=== PATIENT | female | born 1980 | race Caucasian/White ===

== ENCOUNTER 2018-10-06 19:39 | Emergency (ER) | payer SELFPAY ==
--- OUTSIDE RECORDS SUMMARY | 2018-10-06 19:41 | XMS REPORT | Clinical Summary ---
:1980 Author Organization [facility] Address [address] [place] [address] Care Team Providers Name Role Phone Unavailable Primary Care Provider Unavailable Allergies Active Allergy Reactions Severity Noted Date Comments Levofloxacin 02/01/2017 Medications No known medications Active Problems Not on file Social History Tobacco Use Types Packs/Day Years Used Date Current Every Day Smoker 1 Sex Assigned at Date Recorded Not on file Job Start Date Occupation Industry Not on file Not on file Not on file Travel History Travel Start Travel End No recent travel history available. Last Filed Vital Signs Not on file Plan of Treatment Not on file Results Not on fileafter 10/05/2017
--- OUTSIDE RECORDS SUMMARY | 2018-10-06 19:41 | XMS REPORT | Clinical Summary ---
:1980 Author Organization [facility] Address [address] [place] [address] Care Team Providers Name Role Phone Asked, No Pcp Primary Care Provider Unavailable Allergies Active Allergy Reactions Severity Noted Date Comments Levofloxacin 07/22/2017 Medications No known medications Active Problems Not on file Social History Tobacco Use Types Packs/Day Years Used Date Current Every Day Smoker Cigarettes 1 Alcohol Use Drinks/Week oz/Week Comments No Sex Assigned at Date Recorded Not on file Job Start Date Occupation Industry Not on file Not on file Not on file Travel History Travel Start Travel End No recent travel history available. Last Filed Vital Signs Not on file Plan of Treatment Health Maintenance Due Date Last Done Comments CERVICAL CANCER SCREENING 1999 INFLUENZA VACCINE 04/18/2018 Results Not on fileafter 10/05/2017 Insurance Payer Benefit Plan / Group Subscriber ID Type Phone Address [facility] xxxxxxxxx HMO PLAN [address] [place] [phone] Advance Directives Patient has advance care planning documents on file. For more information, please contact:[facility] [place] [address]
[2018-10-06 20:44] LABS: Absolute Lymphocytes (CBC) 1.6 K/uL (0.7-4.9); Absolute Monocytes 0.5 K/uL (0.1-1.3); Absolute Neutrophil 7.3 K/uL (1.8-8.0); Basophils % 0.8 % (0-1.3); Eosinophils % 1.3 % (0-4.4); Hematocrit 39.4 % (36.0-45.0); Lymphocytes % 16.5 % (15.3-44.8); MPV 8.5 fL (7.6-11.3); Monocytes % 5.6 % (3.3-12.3); RBC Red Blood Cell Count 4.41 M/uL (3.86-4.86)
[2018-10-06] MEDS ORDERED: CLINDAMYCIN 900MG/D5W 900 MG/50 ML IVPB IV ONE (20:52)
[2018-10-06 21:03] LABS: Potassium 3.7 mmol/L (3.5-5.1)
--- NOTE | 2018-10-06 21:09 | RAD REPORT ---
EXAM DESCRIPTION: CT - Soft Tissue Neck W/Contr - 10/06/2018 8:39 pm CLINICAL HISTORY: Neck pain and neck swelling COMPARISON: None. TECHNIQUE: Computed axial tomography of the neck was obtained. 50 cc Isovue-300 administered intrave nously. Coronal and sagittal reconstruction was performed All CT scans are performed using dose optimization technique as appropriate and may include automated exposure control or mA/KV adjustment according to patient size. FINDINGS: Dental caries is present. Diffuse edema is present within the subcutaneous tissues of the right cheek and face without visualization of a fluid-filled abscess. The globes are normal size and density. The periorbital fat is clear. Fluid within the sinuses is not noted. The parotid and submandibular glands are unremarkable. Subcentimeter right thyroid nodule likely is b enign. The pharynx, larynx, tongue base and subglottic trachea appear unremarkable Mild right neck lymph nodes probably are reactive in nature. The soft palate appears elongated which narrows the oropharynx IMPRESSION: Dental caries with a right facial cellulitis The soft palate appears elongated which narrows the oropharynx. This can result in sleep apnea and sh ould be correlated clinically
--- NOTE | 2018-10-06 22:29 | EDPHYS ---
Physician Documentation [facility] Name: Theresa Mcguire Age: 38 yrs Sex: Female : 1980 Arrival Date: 10/06/2018 Time: 19:43 Bed 2 Private MD: None, None ED Physician Urban Vivar HPI: 10/06 20:43 This 38 yrs old Female presents to ER via Ambulatory with complaints of jr8 Facial Swelling. 20:43 Patient recently seen at another facility for facial pain secondary to suspected dental jr8 abscess. Currently on Keflex and Flagyl. Patient stated that now she is having facial swelling . Severity of symptoms: At their worst the symptoms were moderate in the emergency department the symptoms are unchanged. The patient has not experienced similar symptoms in the past. The patient has been recently seen by a physician:. 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 - Social history:: Smoking status: Patient uses tobacco products, smokes one-half pack cigarettes per day. - Ebola Screening: : Patient negative for fever greater than or equal to 101.5 degrees Fahrenheit, and additional compatible Ebola Virus Disease symptoms. ROS: 20:48 Eyes: Negative for injury, pain, redness, and discharge, Neck: Negative for injury, jr8 pain, and swelling, Cardiovascular: Negative for chest pain, palpitations, and edema, Respiratory: Negative for shortness of breath, cough, wheezing, and pleuritic chest pain, Abdomen/GI: Negative for abdominal pain, nausea, vomiting, diarrhea, and constipation, Back: Negative for injury and pain, MS/Extremity: Negative for injury and deformity, Skin: Negative for injury, rash, and discoloration, Neuro: Negative for headache, weakness, numbness, tingling, and seizure. 20:48 ENT: Positive for dental pain, Gum pain Exam: 20:48 Eyes: Pupils equal round and reactive to light, extra-ocular motions intact. Lids and jr8 lashes normal. Conjunctiva and sclera are non-icteric and not injected. Cornea within normal limits. Periorbital areas with no swelling, redness, or edema. Neck: Trachea midline, no thyromegaly or masses palpated, and no cervical lymphadenopathy. Supple, full range of motion without nuchal rigidity, or vertebral point tenderness. No Meningismus. Cardiovascular: Regular rate and rhythm with a normal S1 and S2. No gallops, murmurs, or rubs. Normal PMI, no JVD. No pulse deficits. Respiratory: Lungs have equal breath sounds bilaterally, clear to auscultation and percussion. No rales, rhonchi or wheezes noted. No increased work of breathing, no retractions or nasal flaring. Abdomen/GI: Soft, non-tender, with normal bowel sounds. No distension or tympany. No guarding or rebound. No evidence of tenderness throughout. Back: No spinal tenderness. No costovertebral tenderness. Full range of motion. Skin: Warm, dry with normal turgor. Normal color with no rashes, no lesions, and no evidence of cellulitis. MS/ Extremity: Pulses equal, no cyanosis. Neurovascular intact. Full, normal range of motion. Neuro: Awake and alert, GCS 15, oriented to person, place, time, and situation. Cranial nerves II-XII grossly intact. Motor strength 5/5 in all extremities. Sensory grossly intact. Cerebellar exam normal. Normal gait. 20:48 Head/face: Noted is swelling, that is moderate, of the right cheek, tenderness, that is mild, of the right cheek. 20:48 ENT: Exam is negative for earache, ear discharge, TM abnormalities, nasal discharge, pharyngitis, dysphagia, abnormal voice, Airway patent. Dentition poor with multiple carries present and deteriorating teeth. No obvious fluctuant mass to gum line. Vital Signs: 20:10 BP 133 / 95; Pulse 86; Resp 17 S; Temp 99.1(O); Pulse Ox 100% on R/A; Weight 58.97 kg jd3 (R); Height 5 ft. 7 in. (170.18 cm) (R); 20:57 BP 144 / 91; Pulse 86; Resp 18; Pulse Ox 100% on R/A; tl2 21:55 BP 137 / 94; Pulse 84; Resp 18; Pulse Ox 100% on R/A; tl2 22:57 BP 161 / 104; Pulse 76; Resp 18; Pulse Ox 99% on R/A; tl2 20:10 Body Mass Index 20.36 (58.97 kg, 170.18 cm) jd3 MDM: 20:04 Patient medically screened. jr8 22:27 Data reviewed: vital signs, nurses notes, lab test result(s), radiologic studies, CT jr8 scan, and as a result, I will discharge patient. Data interpreted: Pulse oximetry: on room air is 100 %. Interpretation: normal. Counseling: I had a detailed discussion with the patient and/or guardian regarding: the historical points, exam findings, and any diagnostic results supporting the discharge/admit diagnosis, lab results, radiology results, the need for outpatient follow up, a dentist, to return to the emergency department if symptoms worsen or persist or if there are any questions or concerns that arise at home. ED course: Cellulitis present without abscess. No leukocytosis. Vitals WNL. Will send home with strict return precautions if she were to worsen. Stopping keflex and flagyl and putting on clindamycin . 10/06 20:17 Order name: CBC with Diff; Complete Time: 20:49 8 10/06 20:17 Order name: Basic Metabolic Panel; Complete Time: 21:04 jr8 10/06 20:17 Order name: IV; Complete Time: 20:21 jr8 10/06 20:18 Order name: CT Soft Tissue Neck W/contr; Complete Time: 21:13 jr8 Administered Medications: 20:49 Drug: Clindamycin 900 mg Route: IVPB; Infused Over: 30 mins; Site: right antecubital; tl2 21:18 Follow up: IV Status: Completed infusion tl2 Disposition: 10/07 03:29 Co-signature as Attending Physician, Urban Vivar MD Available for consultation at ps1 all times . Disposition: 10/06/18 22:29 Discharged to Home. Impression: Cellulitis of face. - Condition is Stable. - Discharge Instructions: Cellulitis, Adult. - Prescriptions for Clindamycin HCl 300 mg Oral Capsule - take 1 capsule by ORAL route every 6 hours for 10 days; 40 capsule. Tylenol- Codeine #3 300-30 mg Oral Tablet - take 2 tablets by ORAL route every 6 hours As needed; 12 tablet. - Medication Reconciliation Form, Thank You Letter, Antibiotic Education, Prescription Opioid Use form. - Follow up: Private Physician; When: 2 - 3 days; Reason: Recheck today's complaints, Continuance of care, Re-evaluation by your physician. - Problem is new. - Symptoms have improved. Signatures: Dispatcher [employer] EDMS Cesar Soto PA PA jr8 Marisol Castro RN RN tl2 Ovi Back RN RN jd3 Urban Vivar MD MD ps1 Corrections: (The following items were deleted from the chart) 10/06 23:01 22:29 10/06/2018 22:29 Discharged to Home. Impression: Cellulitis of face. Condition is tl2 Stable. Forms are Medication Reconciliation Form, Thank You Letter, Antibiotic Education, Prescription Opioid Use. Follow up: Private Physician; When: 2 - 3 days; Reason: Recheck today's complaints, Continuance of care, Re-evaluation by your physician. Problem is new. Symptoms have improved. jr8
--- NOTE | 2018-10-06 22:29 | ER ---
Nurse's Notes [facility] Name: Theresa Mcguire Age: 38 yrs Sex: Female : 1980 Arrival Date: 10/06/2018 Time: 19:43 Bed 2 Private MD: None, None Diagnosis: Cellulitis of face Presentation: 10/06 20:07 Presenting complaint: Patient states: "I am having right sided facial swelling. went to [facility] the dentist yesterday and a doctor gave me Flagyl and Keflex.". Transition of care: patient was not received from another setting of care. Onset: The symptoms/episode began/occurred yesterday. Anaphylaxis evaluation, no signs or symptoms of anaphylaxis were noted. Onset of symptoms was October 06, 2018. Risk Assessment: Do you want to hurt yourself or someone else? Patient reports no desire to harm self or others. Initial Sepsis Screen: Does the patient meet any 2 criteria? No. Patient's initial sepsis screen is negative. Does the patient have a suspected source of infection? No. Patient's initial sepsis screen is negative. Care prior to arrival: None. 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 - Social history:: Smoking status: Patient uses tobacco products, smokes one-half pack cigarettes per day. - Ebola Screening: : Patient negative for fever greater than or equal to 101.5 degrees Fahrenheit, and additional compatible Ebola Virus Disease symptoms. Screenin:22 Abuse screen: Denies threats or abuse. Nutritional screening: No deficits noted. tl2 Tuberculosis screening: No symptoms or risk factors identified. Fall Risk None identified. Assessment: 20:22 General: Appears in no apparent distress. uncomfortable, Behavior is calm, cooperative, tl2 appropriate for age. Pain: Complains of pain in right side of face. Neuro: Level of Consciousness is awake, alert, obeys commands, Oriented to person, place, time, situation. Cardiovascular: Denies chest pain. Respiratory: Airway is patent Respiratory effort is even, unlabored, Respiratory pattern is regular, symmetrical, Breath sounds are clear. GI: No signs and/or symptoms were reported involving the gastrointestinal system. : No signs and/or symptoms were reported regarding the genitourinary system. EENT: Poor dentition noted. swelling on right side of face from infected tooth. Derm: Skin is pink, warm \\T\\ dry. 22:57 Reassessment: Patient appears in no apparent distress at this time. Patient and/or tl2 family updated on plan of care and expected duration. Pain level reassessed. Patient is alert, oriented x 3, equal unlabored respirations, skin warm/dry/pink. pt verbalized understanding of discharge instructions, need for follow up and prescription usage. Verbalized understanding to stop flagyl and take clindamycin. Vital Signs: 20:10 BP 133 / 95; Pulse 86; Resp 17 S; Temp 99.1(O); Pulse Ox 100% on R/A; Weight 58.97 kg jd3 (R); Height 5 ft. 7 in. (170.18 cm) (R); 20:57 BP 144 / 91; Pulse 86; Resp 18; Pulse Ox 100% on R/A; tl2 21:55 BP 137 / 94; Pulse 84; Resp 18; Pulse Ox 100% on R/A; tl2 22:57 BP 161 / 104; Pulse 76; Resp 18; Pulse Ox 99% on R/A; tl2 20:10 Body Mass Index 20.36 (58.97 kg, 170.18 cm) jd3 ED Course: 19:43 Patient arrived in ED. mr 19:44 None, None is Private Physician. mr 19:56 Cesar Soto PA is [facility]. jr8 19:56 Urban Vivar MD is Attending Physician. jr8 20:09 Triage completed. jd3 20:11 Arm band placed on. jd3 20:21 Inserted saline lock: 22 gauge in right antecubital area, using aseptic technique. tl2 Blood collected. 20:22 Patient has correct armband on for positive identification. Bed in low position. Call tl2 light in reach. Side rails up X 1. 20:38 CT completed. Patient moved back from CT. bq 20:40 CT Soft Tissue Neck W/contr In Process Unspecified. EDMS 20:41 Marisol Castro, RN is Primary Nurse. tl2 22:57 No provider procedures requiring assistance completed. IV discontinued, intact, tl2 bleeding controlled, No redness/swelling at site. Pressure dressing applied. Administered Medications: 20:49 Drug: Clindamycin 900 mg Route: IVPB; Infused Over: 30 mins; Site: right antecubital; tl2 21:18 Follow up: IV Status: Completed infusion tl2 Outcome: 22:29 Discharge ordered by . joel 22:57 Discharged to home ambulatory. tl2 22:57 Condition: stable 22:57 Discharge instructions given to patient, Instructed on discharge instructions, follow up and referral plans. medication usage, Demonstrated understanding of instructions, follow-up care, medications, Prescriptions given X 2. 23:01 Patient left the ED. tl2 Signatures: Dispatcher [employer] [facility] Naa Calvo mr TimmyDona Josh, PA PA jr8 Marisol Castro RN RN tl2 Ovi Back RN RN jd3 Corrections: (The following items were deleted from the chart) 20:11 20:07 Acuity: MYKEL 4 jd3 jd3
== END 2018-10-06 23:01 | disposition home or self-care (01) ==
LOC: ER 19:39
DX: L03.211 Cellulitis of face (principal); F17.210 Nicotine dependence, cigarettes, uncomplicated; Z88.1 Allergy status to other antibiotic agents; Z72.0 Tobacco use
CPT/HCPCS: 36415; 70491; 80048; 85025; Q9967

== ENCOUNTER 2018-10-09 07:37 | Emergency (ER) | payer SELFPAY ==
--- OUTSIDE RECORDS SUMMARY | 2018-10-09 07:39 | XMS REPORT | Clinical Summary ---
:1980 Author Organization [facility] Address [address] [place] [address] Care Team Providers Name Role Phone Unavailable [...] Not on file Results Not on fileafter 10/08/2017
--- OUTSIDE RECORDS SUMMARY | 2018-10-09 07:39 | XMS REPORT | Clinical Summary ---
:1980 Author Organization [facility] Address [address] [place] [address] Care Team Providers Name Role Phone Asked, [...] INFLUENZA VACCINE 04/18/2018 Results Not on fileafter 10/08/2017 Insurance Payer Benefit Plan / Group Subscriber ID Type Phone Address [facility] xxxxxxxxx HMO PLAN [address] [place] [phone] Advance Directives Patient has advance care planning documents on file. For more information, please contact:[facility] [place] [address]
--- NOTE | 2018-10-09 08:03 | ER ---
Nurse's Notes [facility] Name: Theresa Mcguire Age: 38 yrs Sex: Female : 1980 Arrival Date: 10/09/2018 Time: 07:40 Bed 13 Private MD: None, None Diagnosis: Dental caries;Facial Cellulitis Presentation: 10/09 07:40 Presenting complaint: Patient states: "I have a tooth infection that has gotten worse." ss Pt reports dental pain began 6 days ago. Pt has not seen a dentist yet, but reports this is her third ER visit for the same infection. Transition of care: patient was not received from another setting of care. Onset of symptoms was October 02, 2018. Risk Assessment: Do you want to hurt yourself or someone else? Patient reports no desire to harm self or others. Initial Sepsis Screen: Does the patient meet any 2 criteria? No. Patient's initial sepsis screen is negative. Does the patient have a suspected source of infection? Yes: Other: dental infection. Care prior to arrival: None. 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 - Social history:: Smoking status: Patient uses tobacco products, smokes one-half pack cigarettes per day. - Ebola Screening: : Patient denies exposure to infectious person Patient denies travel to an Ebola-affected area in the 21 days before illness onset. - Family history:: not pertinent. - Hospitalizations: : No recent hospitalization is reported. Screenin:45 Abuse screen: Denies threats or abuse. Nutritional screening: No deficits noted. rb1 Tuberculosis screening: No symptoms or risk factors identified. Fall Risk None identified. Assessment: 07:45 General: Appears uncomfortable, Behavior is calm, cooperative, Reports fever for rb1 feeling ill for. General: Pt. stated, "I have been on antibiotics x 5 days.". Pain: Complains of pain in right upper jaw Pain currently is 10 out of 10 on a pain scale. Neuro: Level of Consciousness is awake, alert, obeys commands, Oriented to person, place, time, situation. Cardiovascular: Capillary refill < 3 seconds is brisk in bilateral fingers. Respiratory: Airway is patent Respiratory effort is even, unlabored, Respiratory pattern is regular, symmetrical. GI: Reports diarrhea, nausea, vomiting. : No signs and/or symptoms were reported regarding the genitourinary system. Derm: Skin is dry, Skin is normal, Skin temperature is warm. Musculoskeletal: Swelling present in right cheek. 08:10 Reassessment: Pt was concerned about being discharged because she stated, "Dr. Vivar rb1 told me if it was not improving and I started running a fever to come back to the ER. It is not getting better after five days on antibiotics so I came back. My face was not swollen like this when I saw Dr. Vivar." Provider notified of pt. concerns, no new orders received at this time. Dr. Ray spoke to the pt. during his assessment and recommended that she go see a dentist and to continue the current medication as prescribed. 08:34 Reassessment: As the pt. was leaving she stated, "I have a thermometer in my purse and rb1 I took my temperature, it's 104.2 and he is discharging me with a fever. I called my mother and told her that I was being discharged and she is furious." I asked to take her vital signs so I could report any changes to the provider, but the pt. refused and left the ED. Vital Signs: 07:44 BP 149 / 92; Pulse 88; Resp 14; Temp 97.6(TE); Pulse Ox 99% on R/A; Weight 56.7 kg; ss Height 5 ft. 7 in. (170.18 cm); Pain 10/10; 07:44 Body Mass Index 19.58 (56.70 kg, 170.18 cm) ED Course: 07:40 Patient arrived in ED. sb2 07:40 None, None is Private Physician. sb2 07:41 Camille Moralez, RN is Primary Nurse. rb1 07:43 Rashid Ray MD is Attending Physician. rn 07:43 Triage completed. ss 07:44 Arm band placed on right wrist. ss 07:45 Patient has correct armband on for positive identification. Bed in low position. Call rb1 light in reach. Side rails up X 1. Pulse ox on. NIBP on. 08:25 No provider procedures requiring assistance completed. Patient did not have IV access rb1 during this emergency room visit. Administered Medications: No medications were administered Outcome: 08:03 Discharge ordered by . rn 08:25 Discharged to home ambulatory. rb1 08:25 Condition: stable 08:25 Discharge instructions given to patient, Instructed on discharge instructions, follow up and referral plans. Demonstrated understanding of instructions, follow-up care, Prescriptions given X none 08:34 Patient left the ED. rb1 Signatures: Rashid Ray MD MD rn Smirch, Shelby, RN RN Camille Hathc RN RN rb1 Jennifer Mcconnell2
--- NOTE | 2018-10-09 08:03 | EDPHYS ---
Physician Documentation [facility] Name: Theresa Mcguire Age: 38 yrs Sex: Female : 1980 Arrival Date: 10/09/2018 Time: 07:40 Bed 13 Private MD: None, None ED Physician Rashid Ray HPI: 10/09 07:57 This 38 yrs old Female presents to ER via Ambulatory with complaints of rn Toothache. 07:57 The patient presents with pain, swelling. The problem is located in the left rn upper/front teeth. Onset: The symptoms/episode began/occurred 2 week(s) ago. Modifying factors: The symptoms are alleviated by warm compresses, prescription meds, the symptoms are aggravated by food, talking. Severity of symptoms: At their worst the symptoms were mild, in the emergency department the symptoms are unchanged. The patient has experienced similar episodes in the past. REports multiple dental abscesses, recently seen 2 other ER visits, is on 2nd round of abx, first bactrim/keflex, now on clinda/keflex, reports intermittent swelling that responds to warm compresses, still has not seen a dentist, no fever. . 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 - Social history:: Smoking status: Patient uses tobacco products, smokes one-half pack cigarettes per day. - Ebola Screening: : Patient denies exposure to infectious person Patient denies travel to an Ebola-affected area in the 21 days before illness onset. - Family history:: not pertinent. - Hospitalizations: : No recent hospitalization is reported. ROS: 07:57 Constitutional: Negative for fever, chills, and weight loss, Eyes: Negative for injury, rn pain, redness, and discharge, ENT: + dental pain and facial swelling Neuro: Negative for headache, weakness, numbness, tingling, and seizure. Exam: 07:57 Constitutional: This is a well developed, well nourished patient who is awake, alert, rn and in no acute distress. Eyes: Pupils equal round and reactive to light, extra-ocular motions intact. Lids and lashes normal. ENT: + poor dentition without abscess evident, + mild right dania-facial swelling, no fluctuance. Neuro: Awake and alert, GCS 15, oriented to person, place, time, and situation. Cranial nerves II-XII grossly intact. Motor strength 5/5 in all extremities. Sensory grossly intact. Vital Signs: 07:44 BP 149 / 92; Pulse 88; Resp 14; Temp 97.6(TE); Pulse Ox 99% on R/A; Weight 56.7 kg; ss Height 5 ft. 7 in. (170.18 cm); Pain 10/10; 07:44 Body Mass Index 19.58 (56.70 kg, 170.18 cm) ss MDM: 07:43 Patient medically screened. rn 07:57 Differential diagnosis: dental caries, facial cellulitis. Data reviewed: vital signs, rn nurses notes, and as a result, I will discharge patient. Counseling: I had a detailed discussion with the patient and/or guardian regarding: the historical points, exam findings, and any diagnostic results supporting the discharge/admit diagnosis, the need for outpatient follow up, to return to the emergency department if symptoms worsen or persist or if there are any questions or concerns that arise at home. Special discussion: I discussed with the patient/guardian in detail that at this point there is no indication for admission to the hospital. It is understood, however, that if the symptoms persist or worsen the patient needs to return immediately for re-evaluation. Based on the history and exam findings, there is no indication for further emergent testing or inpatient evaluation. I discussed with the patient/guardian the need to see a dentist for further evaluation of the symptoms. ED course: Patient still with 8 days of abx left, no abscess formation, will dc home with continuation of abx, and recommend dental OMFS f/u. . Administered Medications: No medications were administered Disposition: 10/09/18 08:03 Discharged to Home. Impression: Dental caries, Facial Cellulitis. - Condition is Stable. - Discharge Instructions: Cellulitis, Adult, Dental Pain. - Medication Reconciliation Form, Thank You Letter, Antibiotic Education, Prescription Opioid Use, Work release form form. - Follow up: Private Physician; When: As needed; Reason: Recheck today's complaints, Re-evaluation by your physician. - Problem is an ongoing problem. - Symptoms are unchanged. Signatures: Rashid Ray MD MD rn Smirch, Shelby, RN RN Camille Hatch RN RN rb1 Corrections: (The following items were deleted from the chart) 08:34 08:03 10/09/2018 08:03 Discharged to Home. Impression: Dental caries; Facial rb1 Cellulitis. Condition is Stable. Forms are Medication Reconciliation Form, Thank You Letter, Antibiotic Education, Prescription Opioid Use. Follow up: Private Physician; When: As needed; Reason: Recheck today's complaints, Re-evaluation by your physician. Problem is an ongoing problem. Symptoms are unchanged. rn
== END 2018-10-09 08:34 | disposition home or self-care (01) ==
LOC: ER 07:37
DX: K02.9 Dental caries, unspecified (principal); L03.211 Cellulitis of face; F17.210 Nicotine dependence, cigarettes, uncomplicated
CPT/HCPCS: 99283

== ENCOUNTER 2019-11-20 20:43 | Emergency (ER) | payer SELFPAY ==
--- OUTSIDE RECORDS SUMMARY | 2019-11-20 20:47 | XMS REPORT ---
:1980 [facility] Address [address] [place] [address] Care Team Providers Name Role Phone Unavailable Unavailable Unavailable Problems This patient has no known problems. Allergies, Adverse Reactions, Alerts This patient has no known allergies or adverse reactions. Medications This patient has no known medications. Encounters Start End Encounter Admission Attending Care Care Encounter Date/Time Date/Time Type Type Clinicians Facility Department ID 2019-04-30 2019-04-30 [id number] 03:55:00 03:55:00 2019-04-16 2019-04-16 Emergency E [facility] [id number] 06:34:00 06:34:00 2018-08-03 2018-08-03 Emergency E [facility] 7502 19:15:00 19:15:00
[2019-11-20] MEDS ORDERED: ONDANSETRON 4 MG/2 ML VIAL ONE (21:14)
[2019-11-20] MEDS ORDERED: NA CHLORIDE 0.9% 1,000 ML ONE (21:14)
[2019-11-20 21:51] LABS: Absolute Lymphocytes (CBC) 2.6 K/uL (0.7-4.9); Basophils % 0.7 % (0-1.3); Hematocrit 37.8 % (36.0-45.0); Lymphocytes % 42.5 % (15.3-44.8)
[2019-11-20 22:08] LABS: ALT/SGPT 13 U/L (12-78); AST/SGOT 7 U/L (15-37); Albumin 3.7 g/dL (3.4-5.0); Alkaline Phosphatase 89 U/L (45-117); BUN Blood Urea Nitrogen 4 mg/dL (7-18); Bicarbonate 28 mmol/L (21-32); Bilirubin Direct 0.1 mg/dL (0-0.2); Bilirubin Total 0.5 mg/dL (0.2-1.0); Glucose Level 95 mg/dL (74-106); Lipase 94 U/L (73-393); Potassium 3.7 mmol/L (3.5-5.1); Protein, Total 6.5 g/dL (6.4-8.2); Sodium Level 140 mmol/L (136-145)
[2019-11-20 22:56] LABS: Urine Blood NEGATIVE (NEG); Urine Glucose NEGATIVE (NEG); Urine Protein NEGATIVE (NEG); Urine pH 5.5 (5.0-7.0)
[2019-11-20 23:24] LABS: Urine Bacteria <20 /HPF (<20); Urine Culture Reflex Order NOT NEEDED; Urine RBC NONE SEEN /HPF (NONE SEEN); Urine Urothelial Cells <5 /HPF (NONE SEEN)
--- NOTE | 2019-11-20 23:29 | ER ---
Nurse's Notes [facility] Name: Theresa Mcguire Age: 39 yrs Sex: Female : 1980 Arrival Date: 11/20/2019 Time: 20:44 Bed 14 Private MD: Diagnosis: Low back pain;Shortness of breath Presentation: 11/19 20:46 Chief complaint: Patient states: Low back pain since couple days ago. Reports urinary ca1 frequency, urgency, lethargy, low grade fever, SOB, dizziness. Coronavirus screen: The patient has NOT traveled to a country currently being monitored by the [facility] within the last 14 days. The patient has NOT had contact with any known and/or suspected case of coronavirus. Ebola Screen: Patient negative for fever greater than or equal to 101.5 degrees Fahrenheit, and additional compatible Ebola Virus Disease symptoms Patient denies exposure to infectious person. Patient denies travel to an Ebola-affected area in the 21 days before illness onset. No symptoms or risks identified at this time. Initial Sepsis Screen: Does the patient meet any 2 criteria? No. Patient's initial sepsis screen is negative. Does the patient have a suspected source of infection? No. Patient's initial sepsis screen is negative. Risk Assessment: Do you want to hurt yourself or someone else? Patient reports no desire to harm self or others. Onset of symptoms was November 20, 2019. 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 - Social history:: Smoking status: Patient reports the use of cigarette tobacco products, smokes one pack cigarettes per day. Screenin:05 Abuse screen: Denies threats or abuse. Denies injuries from another. Nutritional ah screening: No deficits noted. Tuberculosis screening: No symptoms or risk factors identified. Fall Risk None identified. Assessment: 21:01 General: Appears uncomfortable, Behavior is calm, cooperative. Pain: Complains of pain ah in lumbar area, left low back and right low back Pain does not radiate. Pain currently is 8 out of 10 on a pain scale. Quality of pain is described as burning, aching, sharp, Pain began 2-3 days ago. Is continuous, Alleviated by nothing. Neuro: Level of Consciousness is awake, alert, Oriented to person, place, time, situation, Tech Intern are equal bilaterally Cardiovascular: Heart tones S1 S2 present Capillary refill < 3 seconds Patient's skin is warm and dry. Respiratory: Airway is patent Respiratory effort is even, unlabored, Respiratory pattern is regular, symmetrical, Breath sounds are clear bilaterally. GI: Abdomen is non-distended, Bowel sounds present X 4 quads. Abd is soft Abd is non tender X 4 quads. : Urine is cloudy, Reports burning with urination, urgency, Denies discharge. EENT: No signs and/or symptoms were reported regarding the EENT system. Derm: No signs and/or symptoms reported regarding the dermatologic system. Musculoskeletal: No signs and/or symptoms reported regarding the musculoskeletal system. 22:12 Reassessment: Pt declines toradol at this time. ah 22:57 Reassessment: Patient appears in no apparent distress at this time. Patient and/or ah family updated on plan of care and expected duration. Pain level reassessed. Patient is alert, oriented x 3, equal unlabored respirations, skin warm/dry/pink. No needs voiced at this time. Vital Signs: 20:46 BP 127 / 96; Pulse 81; Resp 16 S; Temp 97.2(TE); Pulse Ox 99% on R/A; Weight 63.5 kg ca1 (R); Height 5 ft. 7 in. (170.18 cm) (R); 20:58 BP 137 / 83; Pulse 63; Resp 18; Pulse Ox 99% ; ah 22:30 BP 121 / 80; Pulse 75; Resp 17; Pulse Ox 100% ; ah 23:15 BP 109 / 80; Pulse 59; Resp 18; Pulse Ox 100% ; ah 20:46 Body Mass Index 21.93 (63.50 kg, 170.18 cm) ca1 ED Course: 20:44 Patient arrived in ED. cl3 20:48 Triage completed. ca1 20:49 Arm band placed on right wrist. ca1 20:52 Danae Sanabria, RN is Primary Nurse. 20:58 Johnathan Cm PA is PHCP. 20:58 Mj Villalobos MD is Attending Physician. 21:20 Missed attempt(s): 20 gauge in right antecubital area. Bleeding controlled, band aid ah applied, catheter tip intact. 21:40 Initial lab(s) drawn, by ak, sent to lab. Inserted saline lock: 20 gauge in left lp1 antecubital area, using aseptic technique. Blood collected. 22:[address] via wheelchair. 22:12 XRAY Chest (1 view) In Process Unspecified. EDMS 22:40 CT Stone Protocol In Process Unspecified. EDMS 22:56 Awaiting radiology results. 22:57 Patient has correct armband on for positive identification. Bed in low position. Call light in reach. Side rails up X 1. 23:46 No provider procedures requiring assistance completed. IV discontinued. Administered Medications: 21:44 Drug: NS 0.9% 1000 ml Route: IV; Rate: 1 bolus; Site: left antecubital; lp1 23:45 Follow up: Response: No adverse reaction; IV Intake: 650ml 23:30 Not Given (Patient Refused): Zofran (Ondansetron) 4 mg IVP once; over 2 minutes 23:30 Not Given (Patient Refused): TORadol - Ketorolac 15 mg IVP once Intake: 23:45 IV: 650ml; Total: 650ml. Outcome: 23:28 Discharge ordered by MD. 23:44 Discharged to home ambulatory. 23:44 Condition: good 23:44 Discharge instructions given to patient, Instructed on discharge instructions, follow up and referral plans. medication usage, Demonstrated understanding of instructions, follow-up care, medications, Prescriptions given X 3. 23:53 Patient left the ED. Signatures: Dispatcher [employer] EDFL Linda Stacy RN RN lp1 Johnathan Cm PA PA cp Acob, Cheryl, RN RN ca1 Lewis, Charde cl3 Danae Sanabria RN RN
--- NOTE | 2019-11-20 23:29 | EDPHYS ---
Physician Documentation [facility] Name: Theresa Mcguire Age: 39 yrs Sex: Female : 1980 Arrival Date: 11/20/2019 Time: 20:44 Bed 14 Private MD: ED Physician Mj Villalobos HPI: 11/19 21:10 This 39 yrs old Female presents to ER via Ambulatory with complaints of Low cp Back Pain. 21:10 The patient presents with pain that is acute, with no known mechanism of injury. The cp symptoms are located in the low back. The pain does not radiate. Associated signs and symptoms: Pertinent positives: fever, weakness, urinary frequency and urgency, Pertinent negatives: abdominal pain, constipation, incontinence, numbness, urinary retention. 21:10 Onset: The symptoms/episode began/occurred 2 day(s) ago. cp 21:10 Severity of symptoms: in the emergency department the symptoms are unchanged, despite cp home interventions. The patient has experienced similar episodes in the past, today's symptoms are similar, to when the patient was apparently diagnosed with urinary tract infection. 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 - Social history:: Smoking status: Patient reports the use of cigarette tobacco products, smokes one pack cigarettes per day. ROS: 21:20 Constitutional: Negative for chills, fever, poor PO intake. cp 21:20 Eyes: Negative for injury, pain, redness, and discharge. cp 21:20 ENT: Negative for drainage from ear(s), ear pain, sore throat, difficulty swallowing, difficulty handling secretions. 21:20 Cardiovascular: Negative for chest pain, palpitations. 21:20 Respiratory: Positive for shortness of breath, Negative for cough, wheezing. 21:20 Abdomen/GI: Negative for abdominal pain, vomiting, diarrhea, constipation, anorexia. 21:20 Back: Positive for pain at rest, pain with movement, of the low back area and mid back area. 21:20 : Positive for urinary symptoms, Negative for pelvic pain, difficulty urinating, bladder incontinence. 21:20 Skin: Negative for rash. 21:20 Neuro: Positive for dizziness, weakness, Negative for altered mental status, numbness, cp syncope, tingling. 21:20 All other systems are negative. cp Exam: 21:25 Constitutional: The patient appears in no acute distress, alert, awake, cp non-diaphoretic, non-toxic, well developed, well nourished. 21:25 Head/Face: Normocephalic, atraumatic. cp 21:25 Eyes: Periorbital structures: appear normal, Conjunctiva: normal, no exudate, no injection, Sclera: no appreciated abnormality, Lids and lashes: appear normal, bilaterally. 21:25 ENT: External ear(s): are unremarkable, Ear canal(s): are normal, clear, TM's: dullness, bilaterally, Nose: is normal, Mouth: Lips: moist, Oral mucosa: pink and intact, moist, Posterior pharynx: is normal, airway is patent, no erythema, no exudate. 21:25 Neck: ROM/movement: is normal, is supple, no meningismus, no nuchal rigidity. 21:25 Chest/axilla: Inspection: normal, Palpation: is normal, no crepitus, no tenderness. 21:25 Cardiovascular: Rate: normal, Rhythm: regular, Heart sounds: murmur, not appreciated, Edema: is not appreciated, JVD: is not appreciated. 21:25 Respiratory: the patient does not display signs of respiratory distress, Respirations: normal, no use of accessory muscles, labored breathing, is not present, Breath sounds: are clear throughout, no decreased breath sounds, no stridor, no wheezing. 21:25 Abdomen/GI: Inspection: abdomen appears normal, Bowel sounds: active, all quadrants, Palpation: soft, in all quadrants, nontender, voluntary guarding, is not appreciated, involuntary guarding, is not appreciated. 21:25 Back: pain, that is mild, of the low back area and mid back area, ROM is normal. 21:25 Skin: cellulitis, is not appreciated, no rash present. 21:25 Neuro: Orientation: to person, place \T\ time. Mentation: is normal, Cerebellar function: is grossly normal, Motor: moves all fours, strength is normal, Sensation: is normal. Vital Signs: 20:46 BP 127 / 96; Pulse 81; Resp 16 S; Temp 97.2(TE); Pulse Ox 99% on R/A; Weight 63.5 kg ca1 (R); Height 5 ft. 7 in. (170.18 cm) (R); 20:58 BP 137 / 83; Pulse 63; Resp 18; Pulse Ox 99% ; ah 22:30 BP 121 / 80; Pulse 75; Resp 17; Pulse Ox 100% ; ah 23:15 BP 109 / 80; Pulse 59; Resp 18; Pulse Ox 100% ; ah 20:46 Body Mass Index 21.93 (63.50 kg, 170.18 cm) ca1 MDM: 20:59 Patient medically screened. cp 23:27 Data reviewed: vital signs, nurses notes, lab test result(s), radiologic studies, CT cp scan. 23:27 Differential diagnosis: strain, sciatica, Herniated disc UTI, influenza. Counseling: I cp had a detailed discussion with the patient and/or guardian regarding: the historical points, exam findings, and any diagnostic results supporting the discharge/admit diagnosis, lab results, radiology results, to return to the emergency department if symptoms worsen or persist or if there are any questions or concerns that arise at home. Response to treatment: the patient's symptoms have mildly improved after treatment, and as a result, I will discharge patient. 11/19 20:59 Order name: Urine Microscopic Only; Complete Time: 23:26 cp 11/19 23:26 Interpretation: Reviewed. cp 11/19 21:06 Order name: Basic Metabolic Panel; Complete Time: 23:08 cp 11/19 23:08 Interpretation: Normal except: CL 109; BUN 4. cp 11/19 21:06 Order name: CBC with Diff; Complete Time: 22:00 cp 11/19 23:09 Interpretation: Normal except: MCV 92.1. cp 11/19 21:06 Order name: Creatinine for Radiology; Complete Time: 23:08 cp 11/19 21:06 Order name: Hepatic Function; Complete Time: 23:08 cp 11/19 23:09 Interpretation: Normal except: AST 7. cp 11/19 21:06 Order name: Lipase; Complete Time: 23:08 cp 11/19 21:06 Order name: Influenza Screen (a \T\ B); Complete Time: 22:00 cp 11/19 21:09 Order name: Urine Dipstick--Ancillary (enter results); Complete Time: 23:08 mw2 11/19 21:09 Order name: Urine --Ancillary (enter results); Complete Time: 23:08 mw2 11/19 22:01 Order name: CT Stone Protocol 11/19 22:02 Order name: XRAY Chest (1 view) 11/19 20:59 Order name: Urine Dipstick-Ancillary (obtain specimen); Complete Time: 21:20 cp 11/19 21:06 Order name: Urine Test (obtain specimen); Complete Time: 21:20 cp 11/19 21:06 Order name: IV Saline Lock; Complete Time: 21:44 cp 11/19 21:06 Order name: Labs collected and sent; Complete Time: 21:44 cp Administered Medications: 21:44 Drug: NS 0.9% 1000 ml Route: IV; Rate: 1 bolus; Site: left antecubital; lp1 23:45 Follow up: Response: No adverse reaction; IV Intake: 650ml ah 23:30 Not Given (Patient Refused): Zofran (Ondansetron) 4 mg IVP once; over 2 minutes ah 23:30 Not Given (Patient Refused): TORadol - Ketorolac 15 mg IVP once ah Disposition: 11/20/19 23:28 Discharged to Home. Impression: Low back pain, Shortness of breath. - Condition is Stable. - Discharge Instructions: Back Pain, Adult, Shortness of Breath, Back Exercises. - Prescriptions for Cyclobenzaprine 10 mg Oral Tablet - take 1 tablet by ORAL route every 8 hours As needed; 20 tablet. Diclofenac Sodium 75 mg Oral Tablet, Delayed Release (E.C.) - take 1 tablet by ORAL route 2 times per day; 20 tablet. Albuterol Sulfate 90 mcg/actuation - inhale 1-2 puff by INHALATION route every 4-6 hours; 1 Inhaler. - Medication Reconciliation Form, Thank You Letter, Antibiotic Education, Prescription Opioid Use form. - Follow up: Private Physician; When: 1 - 2 days; Reason: Recheck today's complaints. - Problem is new. - Symptoms have improved. Addendum: 11/22/2019 06:36 Co-signature as Attending Physician, Mj Villalobos MD I agree with the assessment and t w4 plan of care. Signatures: Dispatcher [employer] EDLinda Griffiths RN RN lp1 Johnathan Cm PA PA cp Mj Villalobos MD MD tw4 Josie Worley RN RN [facility] Danae Sanabria RN RN Corrections: (The following items were deleted from the chart) 11/19 23:29 23:28 11/20/2019 23:28 Discharged to Home. Impression: Low back pain. Condition is cp Stable. Forms are Medication Reconciliation Form, Thank You Letter, Antibiotic Education, Prescription Opioid Use. Follow up: Private Physician; When: 1 - 2 days; Reason: Recheck today's complaints. Problem is new. Symptoms have improved. cp 23:53 23:29 11/20/2019 23:28 Discharged to Home. Impression: Low back pain; Shortness of ah breath. Condition is Stable. Discharge Instructions: Back Pain, Adult, Back Exercises. Prescriptions for Cyclobenzaprine 10 mg Oral Tablet - take 1 tablet by ORAL route every 8 hours As needed; 20 tablet, Diclofenac Sodium 75 mg Oral Tablet, Delayed Release (E.C.) - take 1 tablet by ORAL route 2 times per day; 20 tablet. and Forms are Medication Reconciliation Form, Thank You Letter, Antibiotic Education, Prescription Opioid Use. Follow up: Private Physician; When: 1 - 2 days; Reason: Recheck today's complaints. Problem is new. Symptoms have improved. cp 11/20 20:12 11/19 21:20 Neuro: Positive for weakness, Negative for altered mental status, cp dizziness, headache, cp 11/20 20:12 11/19 21:20 All other systems are negative, cp cp
[2019-11-21 00:41] VITALS: TEMP 97.2
[2019-11-21 00:45] VITALS: BP 121/80; O2SAT 100
--- NOTE | 2019-11-21 08:12 | RAD REPORT ---
EXAM DESCRIPTION: Manda Single View11/20/2019 10:12 pm CLINICAL HISTORY: Shortness of breath COMPARISON: none FINDINGS: The lungs are hyperaerated The lungs appear clear of acute infiltrate. The heart is normal size IMPRESSION: No acute abnormalities displayed
--- NOTE | 2019-11-21 09:54 | RAD REPORT ---
EXAM DESCRIPTION: CT - Stone Protocol - 11/21/2019 7:18 am CLINICAL HISTORY: Back pain. Urinary frequency. Assess for obstructive uropathy. TECHNIQUE: CT scan of the abdomen and pelvis was performed without intravenous contrast. Stone myrna col was utilized. 2.5 mm axial images were obtained along with coronal and sagittal reformatted image s. DOSE OPTIMIZATION: This facility uses dose optimization techniques as appropriate to perform exams, including at least one of the following techniques: 1. Automated exposure control. 2. Adjustment of the mA and/or kV according to patient size (this includes techniques or standardized protocols for targeted exams where dose is matched to the indication/reason for exam, i.e. extremiti es or head). 3. Use of iterative reconstructive technique. COMPARISON: None. FINDINGS: Lung Bases: There are no active infiltrates. There is a small pericardial effusion. Liver: Normal. Spleen: Normal. Pancreas: Normal. Gallbladder: Normal. Adrenal Glands: Normal. Right Kidney: Normal. Left Kidney: There is an exophytic mass identified extending laterally from the midpole measuring 1.4 x 1.3 cm. This has a density 18 Hounsfield units. Further evaluation with a nonemergent ultrasound recommended to exclude a solid mass. Right Ureter: Normal. Left Ureter: Normal. Urinary Bladder: Normal. Retroperitoneal Structures: Normal. Bowel Survey: There is increased stool identified throughout the colon. The appendix is unremarkable. The distal ileum is unremarkable. Uterus and Adnexa: An IUD is identified in position. Peritoneal Cavity: Normal. Mesenteric Structures: Normal. Abdominal Wall: No hernia. Bony Structures: No suspicious lesions. IMPRESSION: 1. Increased stool identified throughout the colon. 2. IUD is identified in good position. 3. Exophytic mass left kidney. Nonemergent ultrasound evaluation recommended to exclude a solid mass. Electronically signed by: Cayetano Harmon MD 11/20/2019 11:00 PM SUSPENDER CUTTER Due to temporary technical issues with the PACS/Fluency reporting system, reports are being signed by the in house radiologist as a courtesy to ensure prompt reporting. The interpreting radiologist is f ully responsible for the content of the report.
== END 2019-11-20 23:53 | disposition home or self-care (01) ==
LOC: ER 20:43
DX: R06.02 Shortness of breath (principal); F41.9 Anxiety disorder, unspecified; F17.210 Nicotine dependence, cigarettes, uncomplicated
CPT/HCPCS: 36415; 71045; 74176; 76377; 80048; 80076; 81003; 81015; 81025; 83690; 85025; 87804; 99284; J2405; J7030

== ENCOUNTER 2023-03-20 15:42 | Emergency (ER) | payer SELFPAY ==
--- OUTSIDE RECORDS SUMMARY | 2023-03-20 15:50 | XMS REPORT | Continuity of Care Document ---
:1980 Author Organization [facility] Address [address] [place] [address] [address] [place] [address] Care Team Providers Name Role Phone Asked, No Pcp Primary Care Physician Unavailable Charli Rivers Attending Clinician Tiana Hadley Attending Clinician Iglesia Hensley Attending Clinician Estephania Salgado Attending Clinician Daniel Elias Attending Clinician [phone] Problems Condition Condition Condition Status Onset Resolution Last Treating Co mments Source Name Details Category Date Date Treatment Clinician Date SEIZURE SEIZURE Diagnosis Active 2019-04-30 Memoria Active 04-30 05:41:00 l 04/30/2019 01:00: Scottie fitzpatrick [address] LEFT SIDE LEFT SIDE Diagnosis Active 2019-10-18 Memoria PAIN/ PAIN/ 04-16 16:42:00 l SNYCOPE SNYCOPE 00:00: Fuentes Active 00 04/16/2019 [facility] POSS POSS Diagnosis Active 2017-092019-08-30 Mem oria APPENDIX APPENDIX 1-16 17:04:00 l Active 00:00: Fuentes 08/03/2018 00 [facility] CHEST PAIN CHEST Diagnosis Active 2015-10-09 Memoria PAIN - 22:47:00 l Active 00:00: [place] 10/09/2015 00 [place] Essential Essential Problem 2019-02-21 Memoria (primary) (primary) 13:09:49 l hypertensi hypertensi He rmann on on 02/21/2019 [facility] Chest Chest Problem 2019-02-21 Memor ia pain, pain, 13:09:49 l unspecifie unspecifie He rmann d d 02/21/2019 [facility] Nausea Nausea Problem 2019-02-21 Emeterio brittany with with 13:09:49 l vomiting, vomiting, Herm thom unspecifie unspecifie d d 02/21/2019 [facility] History of Past Illness Condition Condition Condition Status Onset Resolution Last Treating Co mments Source Name Details Category Date Date Treatment Clinician Date Unspecifie Unspecifi Problem 2019-05-02 2019-05-02 Memoria d ed 8- 22:10:47 22:10:47 l convulsion convulsion 17:00: He rmann s s 00 04/30/2019 05/02/2019 [facility] Weakness Weakness Problem 2019-04-18 2019-04-18 Memoria 04/16/201904-16 21:48:45 21:48:45 l 04/18/2019 17:00: Scottie fitzpatrick [address] Unspecifie Unspecifi Problem 2017-092019-02-21 2019-02-21 Memoria d ovarian ed ovarian 10-08 13:09:49 13:09:49 l cyst, left cyst, left 05:01: He rmann side side 56 08/08/2018 02/21/2019 [facility] Unspecifie Unspecifi Problem 2017-092019-02-21 2019-02-21 Memoria d ovarian ed ovarian 10-04 13:09:49 13:09:49 l cyst, cyst, 06:00: Fuentes unspecifie unspecifie 00 d side d side 08/04/2018 02/21/2019 [facility] Allergies, Adverse Reactions, Alerts Allergy Allergy Status Severity Reaction(s) Onset Inactive Treating Comm ents Source Name Type Date Date Clinician Levoflox Propensi Active 2016-09 [facility] adverse 00:00: Hospita reaction 00 l s to drug Levoflox Propensi [facility] reaction [facility] penicill penicill Active [facility] in in l Fuentes Zofran Zofran Active [facility]oria l [facility] Levaquin Levaquin Active [facility] Social History Social Habit Start Date Stop Date Quantity Comments Source Gender identity [facility] History of tobacco Smokes tobacco [facility] History of Social 2019-05-08 2019-05-[address] function 00:00:00 00:00:00 Hospital Social History 2019-04-30 2019-04-30 [facility] 09:40:36 09:40:36 Alcohol intake 2019-03-13 2019-03-13 Current [facility] 00:00:00 00:00:00 non-drinker of Hospital alcohol (finding) Cigarettes smoked 2017-02-01 2017-02-01 AUNG Caro current (pack per 00:00:00 00:00:00 [facility] Center day) - Reported Sex Assigned At [birth year] AUNG Valdess 00:00:00 00:00:00 [facility] Smoking Status Start Date Stop Date Source Social History 2018-08-04 01:34:39 [facility] Medications Ordered Filled Start Stop Current Ordering Indication Dosage Frequency Signature Comments Components Source Medication Medication Date Date Medication? Clinician (SIG) Name Name Methadone No Notes: Memori a 8-13 (Same as: l 15:25: Dolophine) Methadone No Notes: Memori a 8-13 (Same as: l 15:25: Dolophine) Isolyte S No Route: IV, Me moria PH-7.4 8-13 ONCE, l (Bolus) IV 11:56: Dosing Sarah nn Weight 63.636 kg, Start date: 04/30/19 6:56:00 CDT, Stop date: 04/30/19 6:56:00 CDT Isolyte S No Route: IV, Me moria PH-7.4 8-13 ONCE, l (Bolus) IV 11:56: Dosing Sarah nn Weight 63.636 kg, Start date: 04/30/19 6:56:00 CDT, Stop date: 04/30/19 6:56:00 CDT Acetaminoph No Notes: Do M emoria en 7-30 not exceed l 12:24: 4 gm/day. (Same as: Tylenol) Reglan No Notes: Memoria 7-30 (Same as: l 12:24: Reglan) Acetaminoph No Notes: Do M emoria en 04-16 not exceed l 12:24: 4 gm/day. (Same as: Tylenol) Reglan No Notes: Memoria 7-30 (Same as: l 12:24: Reglan) iodixanol No 100 mL, Memor ia - Route: l 12:16: IVP, Drug Form: SOLN, Dosing Weight 63.636, kg, ONCALL, STAT, Start date: 04/16/19 7:16:00 CDT, Duration: 1 doses or times, Dose = 2.2ml/kg, Max dose = 100ml -- "To be infused by Radiology Staff ONLY" iodixanol No 100 mL, Memor ia 04-16 Route: l 12:16: IVP, Drug Form: SOLN, Dosing Weight 63.636, kg, ONCALL, STAT, Start date: 04/16/19 7:16:00 CDT, Duration: 1 doses or times, Dose = 2.2ml/kg, Max dose = 100ml -- "To be infused by Radiology Staff ONLY" Saline No Notes: Memoria Flush 0.9% 7-30 (Same as: l 11:50: BD Posiflush) Saline No Notes: Memoria Flush 0.9% 7-30 (Same as: l 11:50: BD Posiflush) naproxen 2017-09 No 500 mg = 1 Mem oria 500 mg oral 1-17 tab, PO, l tablet 07:15: BID, X 10 Scottie n 00 day, # 20 tab, 0 Refill(s) naproxen 2017-09 No 500 mg = 1 Mem oria 500 mg oral 1-17 tab, PO, l tablet 07:15: BID, X 10 Scottie n 00 day, # 20 tab, 0 Refill(s) Rocephin + 2017-09 No Notes: Memor ia sterile 1-17 (Same As: l water 10 mL 04:21: Rocephin). Use with 100 mL NS and infuse over 30 min MEDICATION WASTE Product Size: 1000 mg Product Wasted: ___ mg Rocephin + 2017-09 No Notes: Memor ia sterile 10-04 (Same As: l water 10 mL 04:21: Rocephin). Fuentes 00 Use with 100 mL NS and infuse over 30 min MEDICATION WASTE Product Size: 1000 mg Product Wasted: ___ mg Dilaudid 2017-09 No Notes: Memoria 10-04 Same as: l 01:25: Dilaudid Fuentes 00 Dilaudid 2017-09 No Notes: Memoria 10-04 Same as: l 01:25: Dilaudid Sodium 2017-09 No 1,000 mL, Memori a Chloride 10-04 1000 l 0.9% 01:23: ml/hr, Fuentes (Bolus) IV 00 Infuse Over: 1 hr, Route: IV, 1,000, Drug form: INJ, ONCE, Priority: STAT, Dosing Weight 68.182 kg, Start date: 08/03/18 19:23:00 HOSPICE EDUCATOR, Stop date: 08/03/18 19:23:00 HOSPICE EDUCATOR Saline 2017-09 No Notes: Memoria Flush 0.9% 10-04 Same as: l 01:23: BD Posiflush Sterile Ondansetron 2017-09 No Notes: Emeterio brittany 10-04 (Same as: l 01:23: Zofran) MEDICATION WASTE Product Size: 4 mg Product Wasted: ___ mg Morphine 2017-09 No 4 mg, Memoria 10-04 Route: l 01:23: IVP, ONCE, [place] Dosing Weight 68.182, kg, Priority: STAT, Start date: 08/03/18 19:23:00 HOSPICE EDUCATOR, Stop date: 08/03/18 19:23:00 HOSPICE EDUCATOR Sodium 2017-09 No 1,000 mL, Memori a Chloride 17 1000 l 0.9% 01:23: ml/hr, [place] (Bolus) IV 00 Infuse Over: 1 hr, Route: IV, 1,000, Drug form: INJ, ONCE, Priority: STAT, Dosing Weight 68.182 kg, Start date: 08/03/18 19:23:00 HOSPICE EDUCATOR, Stop date: 08/03/18 19:23:00 HOSPICE EDUCATOR Saline 2017-09 No Notes: Memoria Flush 0.9% 10-04 Same as: l 01:23: BD Fuentes Posiflush Sterile Ondansetron 2017-09 No Notes: Emeterio brittany 10-04 (Same as: l 01:23: Zofran) Fuentes MEDICATION WASTE Product Size: 4 mg Product Wasted: ___ mg Morphine 2017-09 No 4 mg, Memoria 10-04 Route: l 01:23: IVP, ONCE, [place] Dosing Weight 68.182, kg, Priority: STAT, Start date: 08/03/18 19:23:00 HOSPICE EDUCATOR, Stop date: 08/03/18 19:23:00 HOSPICE EDUCATOR Vital Signs Vital Name Observation Time Observation Value Comments Source Temperature Oral (F) 2019-04-30 18:58:00 98.2 F [facility] Respitory Rate 2019-04-30 18:58:00 Memori al [place] Systolic (mm Hg) 2019-04-30 18:58:00 Emeterio rial Fuentes Diastolic (mm Hg) 2019-04-30 18:58:00 Mem orial Fuentes Respitory Rate 2019-04-30 13:55:00 Memori al [place] Systolic (mm Hg) 2019-04-30 13:55:00 Emeterio rial [place] Diastolic (mm Hg) 2019-04-30 13:55:00 Mem orial [place] Respitory Rate 2019-04-30 11:30:00 Memori al [place] Systolic (mm Hg) 2019-04-30 11:30:00 Emeterio rial Fuentes Diastolic (mm Hg) 2019-04-30 11:30:00 Mem orial [place] Height 2019-04-30 09:43:00 167.64 cm [facility] BMI Calculated 2019-04-30 09:43:00 Memori al Fuentes Weight 2019-04-30 09:43:00 [facility] Heart Rate 2019-04-30 09:00:00 [facility] [place] Temperature Oral (F) 2019-04-30 09:00:00 98.2 F [facility] Height 2019-04-30 09:00:00 167.64 cm [facility] [place] BMI Calculated 2019-04-30 09:00:00 Memori al [place] Weight 2019-04-30 09:00:00 [facility] Systolic (mm Hg) 2019-04-16 17:26:00 Emeterio rial Fuentes Diastolic (mm Hg) 2019-04-16 17:26:00 Mem orial [place] Respitory Rate 2019-04-16 17:26:00 Memori al [place] Heart Rate 2019-04-16 16:00:00 [facility] [place] Systolic (mm Hg) 2019-04-16 16:00:00 Emeterio rial [place] Diastolic (mm Hg) 2019-04-16 16:00:00 Mem orial Fuentes Respitory Rate 2019-04-16 16:00:00 Memori al Fuentes Temperature Oral (F) 2019-04-16 15:01:00 98.8 F [facility] [place] Heart Rate 2019-04-16 15:01:00 [facility] [place] Respitory Rate 2019-04-16 15:01:00 Memori al Fuentes Systolic (mm Hg) 2019-04-16 15:01:00 Emeterio rial [place] Diastolic (mm Hg) 2019-04-16 15:01:00 Mem orial Fuentes Heart Rate 2019-04-16 14:00:00 [facility] Height 2019-04-16 11:39:00 167.64 cm [facility] BMI Calculated 2019-04-16 11:39:00 Memori al Fuentes Weight 2019-04-16 11:39:00 [facility] [place] Temperature Oral (F) 2019-04-16 11:39:00 97.9 F [facility] [place] Systolic (mm Hg) 2018-08-04 06:54:00 Emeterio rial Fuentes Diastolic (mm Hg) 2018-08-04 06:54:00 Mem orial Fuentes Systolic (mm Hg) 2018-08-04 06:00:00 Emeterio rial Fuentes Diastolic (mm Hg) 2018-08-04 06:00:00 Mem orial Fuentes Respitory Rate 2018-08-04 06:00:00 Memori al Fuentes Systolic (mm Hg) 2018-08-04 04:09:00 Emeterio rial Fuentes Diastolic (mm Hg) 2018-08-04 04:09:00 Mem orial [place] Respitory Rate 2018-08-04 04:09:00 Memori al [place] Respitory Rate 2018-08-04 03:07:00 Memori al Fuentes Height 2018-08-04 01:18:00 170.18 cm [facility] Weight 2018-08-04 01:18:00 [facility] [place] BMI Calculated 2018-08-04 01:18:00 Memori al [place] Temperature Oral (F) 2018-08-04 01:18:00 99.0 F [facility] Heart Rate 2018-08-04 01:18:00 [facility] Temperature Oral (F) 2015-10-10 03:33:00 98.3 F [facility] [place] Weight 2015-10-10 03:33:00 [facility] Systolic (mm Hg) 2015-10-10 03:33:00 Emeterio rial Fuentes Diastolic (mm Hg) 2015-10-10 03:33:00 Mem orial [place] Respitory Rate 2015-10-10 03:33:00 Memori al Fuentes Heart Rate 2015-10-10 03:33:00 [facility] [place] Height 2015-09-27 10:20:00 170.18 cm [facility] Temperature Oral (F) 2015-09-27 10:20:00 98.0 F [facility] Weight 2015-09-27 10:20:00 [facility] [place] BMI Calculated 2015-09-27 10:20:00 Memori al Fuentes Heart Rate 2015-09-27 10:20:00 [facility] Fuentes Respitory Rate 2015-09-27 10:20:00 Memori al Fuentes Systolic (mm Hg) 2015-09-27 10:20:00 Emeterio rial [place] Diastolic (mm Hg) 2015-09-27 10:20:00 Mem orial [place] Procedures This patient has no known procedures. Plan of Care Planned Activity Planned Date Details Comments Source Future Scheduled 2023-03-04 INFLUENZA VACCINE Method [facility] Test 07:08:23 [code = INFLUENZA VACCINE] Future Scheduled 2023-03-04 COVID-19 VACCINE [facility] Test 07:08:23 (#1) [code = COVID-19 VACCINE (#1)] Future Scheduled 2023-03-04 Screening for [facility] Test 07:08:23 malignant neoplasm of cervix (procedure) [code = 972960280] Future Scheduled 2023-03-04 BREAST CANCER [facility] Test 07:08:23 SCREENING [code = BREAST CANCER SCREENING] Encounters Start End Encounter Admission Attending Care Care Encounter Source Date/Time Date/Time Type Type Clinicians Facility Department ID 2019-04-30 2019-04-30 [facility] [id number] Memoria 08:55:47 19:00:00 mark Dill Rosibel [facility] 2019-04-30 2019-04-30 [facility] [id number] Memoria 08:55:47 19:00:00 mark Dill Rosibel [facility] 2019-04-30 2019-04-30 Outpatient Tita [facility] [id number] 03:55:47 14:00:00 Charli Martinez 2019-04-30 2019-04-30 Outpatient Tita [facility] [id number] 03:55:47 14:00:00 Charli Martinez 2019-04-30 2019-04-30 Emergency E [facility] [id number] 03:55:00 03:55:00 2019-04-16 2019-04-16 [facility] [id number] Memoria 11:34:38 17:27:00 mark Dill Jessenia [facility] 2019-04-16 2019-04-16 [facility] [id number] Memoria 11:34:38 17:27:00 mark Dill Jessenia [facility] 2019-04-16 2019-04-16 Outpatient Jomar [facility] [id number] 06:34:38 12:27:00 Tiana Wallace Jessenia 2019-04-16 2019-04-16 Outpatient Jomar [facility] [id number] 06:34:38 12:27:00 Tiana Wallace 2019-04-16 2019-04-16 Emergency E [id number] 06:34:00 06:34:00 2018-08-04 2018-08-04 [facility] [id number] Memoria 01:15:00 07:24:00 mark Gaspar 02 [facility] 2018-08-04 2018-08-04 [facility] [id number] Memoria 01:15:00 07:24:00 mark Gaspar 02 [facility] 2018-08-03 2018-08-04 Outpatient ERUM Hensley [facility] [id number] 19:15:00 01:24:00 Christopher 02 Carlos 2018-08-03 2018-08-04 Outpatient ERUM Hensley [facility] [id number] 19:15:00 01:24:00 Christopher 02 Carlos 2018-08-03 2018-08-03 Emergency E [facility] [id number] [facility] 19:15:00 19:15:00 2015-10-10 2015-10-10 [facility] [id number] Memoria 03:31:00 06:48:00 Emergency r Garland 01 l [facility] 2015-10-10 2015-10-10 [facility] [id number] Memoria 03:31:00 06:48:00 Emergency r Fuentes 01 l [facility] 2015-10-09 2015-10-10 Outpatient Damian, MHSE MHSE [id number] 21:31:00 00:48:00 Estephania Ahmed 2015-10-09 2015-10-10 Outpatient Damian, MHSE MHSE [id number] 21:31:00 00:48:00 Estephania Ahmed 2015-09-27 2015-09-27 EC [facility] [id number] Memoria 10:14:00 10:58:00 Emergency r Fuentes 00 l [facility] 2015-09-27 2015-09-27 EC [facility] [id number] Memoria 10:14:00 10:58:00 Emergency r Garland 00 l [facility] 2015-09-27 2015-09-27 Outpatient Elias, MHSE MHSE [id number] 04:14:00 04:58:00 Daniel 00 Get 2015-09-27 2015-09-27 Outpatient Elias, MHSE MHSE [id number] 04:14:00 04:58:00 Daniel 00 Get Results Test Description Test Time Test Comments Results Result Comments Source DRUG SCREEN 2019-04-30 16:36:00 Test Item Value Reference Range Interpretation Comme nts U Amph Scr (test code = U Amph Scr) Negative *NA*(04/30/19 11:36 AM[id number] 16:36:00 Test Item Value Reference Range Interpretation Comments U Tiffanie Scr (test code Negative *NA*(04/30/19 = U Tiffanie Scr) 11:36 AM) [facility] [id number] 16:36:00 Test Item Value Reference Range Interpretation Comments U Benzodiaz Scr (test Positive *ABN*(04/30/19 code = U Benzodiaz Scr) 11:36 AM) [facility] [id number] 16:36:00 Test Item Value Reference Range Interpretation Comments U Cocaine Scr (test Positive *ABN*(04/30/19 code = U Cocaine Scr) 11:36 AM) [facility] [id number] 16:36:00 Test Item Value Reference Range Interpretation Comments U Cannab Scr (test Negative *NA*(04/30/19 code = U Cannab Scr) 11:36 AM) [facility] [id number] 16:36:00 Test Item Value Reference Range Interpretation Comments U Opiate Scr (test Positive *ABN*(04/30/19 code = U Opiate Scr) 11:36 AM) [facility] [id number] 16:36:00 Test Item Value Reference Range Interpretation Comments U Phencyclidine Scr (test Negative code = U Phencyclidine *NA*(04/30/19 11:36 Scr) AM) [facility] [id number] 16:36:00 Test Item Value Reference Range Interpretation Comments UDS Note (test code = See Note (04/30/19 11:36 UDS Note) AM) [facility] [id number] 16:36:00 Test Item Value Reference Range Interpretation Comments U Amph Scr (test code Negative *NA*(04/30/19 = U Amph Scr) 11:36 AM) [facility] [id number] 16:36:00 Test Item Value Reference Range Interpretation Comments U Tiffanie Scr (test code Negative *NA*(04/30/19 = U Tiffanie Scr) 11:36 AM) [facility] [id number] 16:36:00 Test Item Value Reference Range Interpretation Comments U Benzodiaz Scr (test Positive *ABN*(04/30/19 code = U Benzodiaz Scr) 11:36 AM) [facility] [id number] 16:36:00 Test Item Value Reference Range Interpretation Comments U Cocaine Scr (test Positive *ABN*(04/30/19 code = U Cocaine Scr) 11:36 AM) [facility] [id number] 16:36:00 Test Item Value Reference Range Interpretation Comments U Cannab Scr (test Negative *NA*(04/30/19 code = U Cannab Scr) 11:36 AM) [facility] [id number] 16:36:00 Test Item Value Reference Range Interpretation Comments U Opiate Scr (test Positive *ABN*(04/30/19 code = U Opiate Scr) 11:36 AM) [facility] [id number] 16:36:00 Test Item Value Reference Range Interpretation Comments U Phencyclidine Scr (test Negative code = U Phencyclidine *NA*(04/30/19 11:36 Scr) AM) [facility] [id number] 16:36:00 Test Item Value Reference Range Interpretation Comments UDS Note (test code = See Note (04/30/19 11:36 UDS Note) AM) [facility] [id number] 16:30:00 Test Item Value Reference Range Interpretation Comments UA Color (test code = Yellow *NA*(04/30/19 UA Color) 11:30 AM) [facility] [id number] 16:30:00 Test Item Value Reference Range Interpretation Comments UA Turbidity (test code Slight Cloudy = UA Turbidity) (04/30/19 11:30 AM) [facility] [id number] 16:30:00 Test Item Value Reference Range Interpretation Comments UA Spec Grav (test code = UA Spec 1.025 1 Grav) [facility] [id number] 16:30:00 Test Item Value Reference Range Interpretation Comments UA pH (test code = UA pH) 6.0 1 5.0-8.0 [facility] [id number] 16:30:00 Test Item Value Reference Range Interpretation Comments UA Protein (test code Negative (04/30/19 11:30 = UA Protein) AM) [facility] [id number] 16:30:00 Test Item Value Reference Range Interpretation Comments UA Glucose (test code Negative (04/30/19 11:30 = UA Glucose) AM) [facility] [id number] 16:30:00 Test Item Value Reference Range Interpretation Comments UA Ketones (test code Negative *NA*(04/30/19 = UA Ketones) 11:30 AM) [facility] AND [id number] 16:30:00 Test Item Value Reference Range Interpretation Comments UA Bili (test code = Negative *NA*(04/30/19 UA Bili) 11:30 AM) [facility] AND [id number] 16:30:00 Test Item Value Reference Range Interpretation Comments UA Blood (test code = Negative (04/30/19 11:30 UA Blood) AM) [facility] AND [id number] 16:30:00 Test Item Value Reference Range Interpretation Comments UA Urobilinogen (test code = UA 0.2 0.1-1.0 Urobilinogen) [facility] AND [id number] 16:30:00 Test Item Value Reference Range Interpretation Comments UA Nitrite (test code Negative (04/30/19 11:30 = UA Nitrite) AM) [facility] AND [id number] 16:30:00 Test Item Value Reference Range Interpretation Comments UA Leuk Est (test Negative (04/30/19 11:30 code = UA Leuk Est) AM) [facility] AND [id number] 16:30:00 Test Item Value Reference Range Interpretation Comments UA Sq Epi (test code = UA Sq Epi) Few /LPF [facility] AND [id number] 16:30:00 Test Item Value Reference Range Interpretation Comments UA WBC (test code = UA WBC) 3-5 /HPF [facility] AND [id number] 16:30:00 Test Item Value Reference Range Interpretation Comments UA RBC (test code = 0-2 /HPF See_Comment [Automa lakshmi message] The UA RBC) system which ge nerated this result tra nsmitted reference range : <=2. The reference range was not used to interpr et this result as jesse l/abnormal. [facility] AND [id number] 16:30:00 Test Item Value Reference Range Interpretation Comments UA Bacteria (test code = UA Many /HPF Bacteria) [facility] AND [id number] 16:30:00 Test Item Value Reference Range Interpretation Comments UA Mucus (test code = UA Mucus) Few /LPF [facility] AND [id number] 16:30:00 Test Item Value Reference Range Interpretation Comments UA Color (test code = Yellow *NA*(04/30/19 UA Color) 11:30 AM) [facility] AND [id number] 16:30:00 Test Item Value Reference Range Interpretation Comments UA Turbidity (test code Slight Cloudy = UA Turbidity) (04/30/19 11:30 AM) [facility] AND [id number] 16:30:00 Test Item Value Reference Range Interpretation Comments UA Spec Grav (test code = UA Spec 1.025 1 Grav) [facility] AND [id number] 16:30:00 Test Item Value Reference Range Interpretation Comments UA pH (test code = UA pH) 6.0 1 5.0-8.0 [facility] AND [id number] 16:30:00 Test Item Value Reference Range Interpretation Comments UA Protein (test code Negative (04/30/19 11:30 = UA Protein) AM) [facility] AND [id number] 16:30:00 Test Item Value Reference Range Interpretation Comments UA Glucose (test code Negative (04/30/19 11:30 = UA Glucose) AM) [facility] AND [id number] 16:30:00 Test Item Value Reference Range Interpretation Comments UA Ketones (test code Negative *NA*(04/30/19 = UA Ketones) 11:30 AM) [facility] AND [id number] 16:30:00 Test Item Value Reference Range Interpretation Comments UA Bili (test code = Negative *NA*(04/30/19 UA Bili) 11:30 AM) [facility] AND [id number] 16:30:00 Test Item Value Reference Range Interpretation Comments UA Blood (test code = Negative (04/30/19 11:30 UA Blood) AM) [facility] AND [id number] 16:30:00 Test Item Value Reference Range Interpretation Comments UA Urobilinogen (test code = UA 0.2 0.1-1.0 Urobilinogen) [facility] AND [id number] 16:30:00 Test Item Value Reference Range Interpretation Comments UA Nitrite (test code Negative (04/30/19 11:30 = UA Nitrite) AM) [facility] AND [id number] 16:30:00 Test Item Value Reference Range Interpretation Comments UA Leuk Est (test Negative (04/30/19 11:30 code = UA Leuk Est) AM) [facility] AND [id number] 16:30:00 Test Item Value Reference Range Interpretation Comments UA Sq Epi (test code = UA Sq Epi) Few /LPF [facility] AND [id number] 16:30:00 Test Item Value Reference Range Interpretation Comments UA WBC (test code = UA WBC) 3-5 /HPF [facility] AND [id number] 16:30:00 Test Item Value Reference Range Interpretation Comments UA RBC (test code = 0-2 /HPF See_Comment [Automa lakshmi message] The UA RBC) system which ge nerated this result tra nsmitted reference range : <=2. The reference range was not used to interpr et this result as jesse l/abnormal. [facility] AND [id number] 16:30:00 Test Item Value Reference Range Interpretation Comments UA Bacteria (test code = UA Many /HPF Bacteria) [facility] AND [id number] 16:30:00 Test Item Value Reference Range Interpretation Comments UA Mucus (test code = UA Mucus) Few /LPF [id number] 12:35:00 Test Item Value Reference Range Interpretation Comments PT (test code = PT) 12.7 s 12.0-14.7 [facility] [id number] 12:35:00 Test Item Value Reference Range Interpretation Comments INR (test code = INR) 0.97 1 0.85-1.17 [facility] HospitalXyuetfyHGAIOJPBOI1207-30-56 12:35:00 Test Item Value Reference Range Interpretation Comments PTT (test code = PTT) 29.2 s 22.9-35.8 [facility] HospitalCwrfrzpSDWYHBAEWN3718-13-14 12:35:00 Test Item Value Reference Range Interpretation Comments PT (test code = PT) 12.7 s 12.0-14.7 [facility] HospitalWhkrxwlGGCANCTPLN4688-82-31 12:35:00 Test Item Value Reference Range Interpretation Comments INR (test code = INR) 0.97 1 0.85-1.17 [facility]il[facility]ohHKGARHURLV6710-22-51 12:35:00 Test Item Value Reference Range Interpretation Comments PTT (test code = PTT) 29.2 s 22.9-35.8 [place] [id number] 09:43:00 Test Item Value Reference Range Interpretation Comments hCG Tot (test code = hCG Tot) no gt [place] [id number] 09:43:00 Test Item Value Reference Range Interpretation Comments hCG Tot (test code = hCG Tot) no gt [facility]WvtqvrvQHMCGSHLRO1196-40-50 09:40:00 Test Item Value Reference Range Interpretation Comments Lymphocytes # (test code = Lymphocytes 1.7 1.0-5.5 #) [facility] HospitalNlhiscpCOPLXVDGCT6036-19-60 09:40:00 Test Item Value Reference Range Interpretation Comments Monocytes # (test code 0.5 See_Comment [Aut omated message] The = Monocytes #) system which generated this result tra nsmitted reference range : <=0.8. The reference r dhaval was not used to int erpret this result as normal/abnormal . [facility]EwqyykuDQFEYAZRGS0535-10-39 09:40:00 Test Item Value Reference Range Interpretation Comments [facility] HIV 4th GEN (test Negative *NA*(04/30/19 code = CDC HIV 4th 4:40 AM) GEN) [facility]KfatwlfTQVTBKHPSBWU4495-76-07 09:40:00 Test Item Value Reference Range Interpretation Comments Sodium Lvl (test code = Sodium Lvl) 136 135-145 [facility] CenterSvovtmsIGUDYLSQFNPT9161-27-40 09:40:00 Test Item Value Reference Range Interpretation Comments Potassium Lvl (test code = Potassium 3.9 3.5-5.1 Lvl) [facility] CenterVlvrtpdEYNYMLYUPDDQ1729-53-31 09:40:00 Test Item Value Reference Range Interpretation Comments Chloride Lvl (test code = Chloride Lvl) 103 95-109 [facility] CenterZrzafxpLESOIIUOCDLS1126-42-39 09:40:00 Test Item Value Reference Range Interpretation Comments CO2 (test code = CO2) 23 24-32 [facility] CenterBeahqdsEYLHNATSTPVR7383-08-04 09:40:00 Test Item Value Reference Range Interpretation Comments Glucose Lvl (test code = Glucose Lvl) 135 70-99 [facility] CenterJjvafpgSBJPOOUNIOCI1183-05-74 09:40:00 Test Item Value Reference Range Interpretation Comments BUN (test code = BUN) 10 7-22 [facility] CenterQankdpzXJRIRHATFNFP9135-18-39 09:40:00 Test Item Value Reference Range Interpretation Comments Creatinine Lvl (test code = Creatinine 0.77 0.50-1.40 Lvl) [facility] CenterYutvnroDTTHYRJSLTLE9283-64-56 09:40:00 Test Item Value Reference Range Interpretation Comments Calcium Lvl (test code = Calcium Lvl) 9.2 8.5-10.5 [facility] CenterSyscdltRPZFVOHALEZC0870-44-70 09:40:00 Test Item Value Reference Range Interpretation Comments eGFR (test code = eGFR) 97 [facility] CenterKayzvrpEWIIWCLGXEMZ1402-33-80 09:40:00 Test Item Value Reference Range Interpretation Comments AGAP (test code = AGAP) 13.9 10.0-20.0 [facility] HospitalHrjvravKEAAWMEWFO6945-91-85 09:40:00 Test Item Value Reference Range Interpretation Comments WBC (test code = WBC) 6.4 3.7-10.4 [facility] HospitalNvlrctcFVLTAVGNFK0347-58-90 09:40:00 Test Item Value Reference Range Interpretation Comments RBC (test code = RBC) 3.91 4.20-5.40 [facility] HospitalRfuupirCGWFTZAPIW9896-23-41 09:40:00 Test Item Value Reference Range Interpretation Comments Hgb (test code = Hgb) 11.5 12.0-16.0 [facility] HospitalQntdhgiDWLLOXMSSG3820-63-16 09:40:00 Test Item Value Reference Range Interpretation Comments Hct (test code = Hct) 33.7 36.0-48.0 [facility] HospitalGfskvtzPWRSAZGEOR1430-82-30 09:40:00 Test Item Value Reference Range Interpretation Comments MCV (test code = MCV) 86.2 80.0-98.0 [facility] HospitalBdyhiqbVZRDCFXHEY9939-55-32 09:40:00 Test Item Value Reference Range Interpretation Comments MCH (test code = MCH) 29.4 pg 27.0-31.0 [facility] HospitalEvkdbmkGSEQENBRRS5844-66-81 09:40:00 Test Item Value Reference Range Interpretation Comments MCHC (test code = MCHC) 34.1 32.0-36.0 [facility] HospitalIhtpqlrEFCBQHKLAJ4582-80-36 09:40:00 Test Item Value Reference Range Interpretation Comments RDW (test code = RDW) 15.8 11.5-14.5 [facility] HospitalXpwapnuXIXVGEUHHZ1191-68-97 09:40:00 Test Item Value Reference Range Interpretation Comments Platelet (test code = Platelet) 225 133-450 [facility] HospitalLxycsxvYJZZPXIEUR6842-88-11 09:40:00 Test Item Value Reference Range Interpretation Comments MPV (test code = MPV) 8.6 7.4-10.4 [facility] HospitalCarwaqbSXKITUCNUZ0480-69-27 09:40:00 Test Item Value Reference Range Interpretation Comments Segs (test code = Segs) 65.6 45.0-75.0 [facility] HospitalQissoigJZCJRCOQLQ8411-72-68 09:40:00 Test Item Value Reference Range Interpretation Comments Lymphocytes (test code = Lymphocytes) 26.4 20.0-40.0 [facility] HospitalKeholwzKQVLRPXKJN4503-94-76 09:40:00 Test Item Value Reference Range Interpretation Comments Monocytes (test code = Monocytes) 7.2 2.0-12.0 [facility] HospitalIfhylptYPZHRRVEZU1299-47-54 09:40:00 Test Item Value Reference Range Interpretation Comments Eosinophils (test code = 0.4 See_Comment [A utomated message] The Eosinophils) system which ge nerated this result tra nsmitted reference range : <=4.0. The reference r dhaval was not used to int erpret this result as normal/abnormal . [facility] HospitalEpsdvulNKBTZNQTKG0304-40-06 09:40:00 Test Item Value Reference Range Interpretation Comments Basophils (test code = 0.4 See_Comment [Aut omated message] The Basophils) system which ge nerated this result tra nsmitted reference range : <=1.0. The reference r dhaval was not used to int erpret this result as normal/abnormal . [facility] HospitalKzfzgbhIGEJTQGENX5913-39-94 09:40:00 Test Item Value Reference Range Interpretation Comments Neutrophils # (test code = Neutrophils 4.2 1.5-8.1 #) [facility] HospitalRunclbdEFSGXSXKHJ4504-21-02 09:40:00 Test Item Value Reference Range Interpretation Comments Lymphocytes # (test code = Lymphocytes 1.7 1.0-5.5 #) [facility] HospitalWwrsgltEXLDORSPRV9152-56-30 09:40:00 Test Item Value Reference Range Interpretation Comments Monocytes # (test code 0.5 See_Comment [Aut omated message] The = Monocytes #) system which generated this result tra nsmitted reference range : <=0.8. The reference r dhaval was not used to int erpret this result as normal/abnormal . [facility] CenterTyoqdkgCWFHDUMLVW1543-04-47 09:40:00 Test Item Value Reference Range Interpretation Comments [facility] HIV 4th GEN (test Negative *NA*(04/30/19 code = CDC HIV 4th 4:40 AM) GEN) [facility] CenterYbkfmlbGRXPYRKWELEO1438-07-73 09:40:00 Test Item Value Reference Range Interpretation Comments Sodium Lvl (test code = Sodium Lvl) 136 135-145 [facility] CenterTozimcuTWATDVCANTAG2172-93-27 09:40:00 Test Item Value Reference Range Interpretation Comments Potassium Lvl (test code = Potassium 3.9 3.5-5.1 Lvl) [facility] CenterWacwjddFRSDLKJBFBZH3738-78-79 09:40:00 Test Item Value Reference Range Interpretation Comments Chloride Lvl (test code = Chloride Lvl) 103 95-109 [facility] CenterNxkjeutMMRWOSCTTDNW0149-11-73 09:40:00 Test Item Value Reference Range Interpretation Comments CO2 (test code = CO2) 23 24-32 [facility] CenterMmezrbsCAISMOICSPQN9962-40-12 09:40:00 Test Item Value Reference Range Interpretation Comments Glucose Lvl (test code = Glucose Lvl) 135 70-99 [facility] CenterGookkjrVTFEIDTRCMXV5383-13-33 09:40:00 Test Item Value Reference Range Interpretation Comments BUN (test code = BUN) 10 7-22 [facility] CenterBhzbjxxFSWLJIODOPWX3183-00-77 09:40:00 Test Item Value Reference Range Interpretation Comments Creatinine Lvl (test code = Creatinine 0.77 0.50-1.40 Lvl) [facility] CenterWfedrwmCZITBCVSFPFZ5863-57-79 09:40:00 Test Item Value Reference Range Interpretation Comments Calcium Lvl (test code = Calcium Lvl) 9.2 8.5-10.5 [facility] CenterNhsoznhYWTUWJYIRQNC6398-37-59 09:40:00 Test Item Value Reference Range Interpretation Comments eGFR (test code = eGFR) 97 [facility] CenterEjyobrgRZSWWJPKURQY3785-23-52 09:40:00 Test Item Value Reference Range Interpretation Comments AGAP (test code = AGAP) 13.9 10.0-20.0 [facility]cQOJWZFJCAA1532-23-37 09:40:00 Test Item Value Reference Range Interpretation Comments WBC (test code = WBC) 6.4 3.7-10.4 [facility] HospitalDyoyjroTNWNPWJVQM6336-09-36 09:40:00 Test Item Value Reference Range Interpretation Comments RBC (test code = RBC) 3.91 4.20-5.40 [facility] HospitalEcblobaPCPXIIOSYW5572-97-34 09:40:00 Test Item Value Reference Range Interpretation Comments Hgb (test code = Hgb) 11.5 12.0-16.0 [facility] HospitalKqtzwcnCSWIFHJPOA4627-50-23 09:40:00 Test Item Value Reference Range Interpretation Comments Hct (test code = Hct) 33.7 36.0-48.0 [facility] HospitalOhgchjeTVWZNDJUJD0800-19-13 09:40:00 Test Item Value Reference Range Interpretation Comments MCV (test code = MCV) 86.2 80.0-98.0 [facility] HospitalVlwgyphKCWYPBWBOV4699-42-07 09:40:00 Test Item Value Reference Range Interpretation Comments MCH (test code = MCH) 29.4 pg 27.0-31.0 [facility] HospitalWgnlywcAAKRETAQFW9383-07-30 09:40:00 Test Item Value Reference Range Interpretation Comments MCHC (test code = MCHC) 34.1 32.0-36.0 [facility] HospitalEkystwhZWMPJKTCIP2390-68-15 09:40:00 Test Item Value Reference Range Interpretation Comments RDW (test code = RDW) 15.8 11.5-14.5 [facility] HospitalKstugwmBECIXRTZQM7877-15-64 09:40:00 Test Item Value Reference Range Interpretation Comments Platelet (test code = Platelet) 225 133-450 [facility] HospitalKcirrhaOGAIXTPMJV6147-13-23 09:40:00 Test Item Value Reference Range Interpretation Comments MPV (test code = MPV) 8.6 7.4-10.4 [facility] HospitalPapdoxcOQNAWJCLKW0340-52-51 09:40:00 Test Item Value Reference Range Interpretation Comments Segs (test code = Segs) 65.6 45.0-75.0 [facility] HospitalRmplfgmOTZBCIGXQC9146-52-42 09:40:00 Test Item Value Reference Range Interpretation Comments Lymphocytes (test code = Lymphocytes) 26.4 20.0-40.0 [facility] HospitalJgtlcvjTUKSGDTOBU1902-21-58 09:40:00 Test Item Value Reference Range Interpretation Comments Monocytes (test code = Monocytes) 7.2 2.0-12.0 [facility] HospitalWbwplfwXOKRHYIXNF2081-48-76 09:40:00 Test Item Value Reference Range Interpretation Comments Eosinophils (test code = 0.4 See_Comment [A utomated message] The Eosinophils) system which ge nerated this result tra nsmitted reference range : <=4.0. The reference r dhaval was not used to int erpret this result as normal/abnormal . [facility] HospitalBfoikocGRJKMYDJYN4910-34-96 09:40:00 Test Item Value Reference Range Interpretation Comments Basophils (test code = 0.4 See_Comment [Aut omated message] The Basophils) system which ge nerated this result tra nsmitted reference range : <=1.0. The reference r dhaval was not used to int erpret this result as normal/abnormal . [facility] HospitalQoslllpFLJOPQTEEJ5195-27-97 09:40:00 Test Item Value Reference Range Interpretation Comments Neutrophils # (test code = Neutrophils 4.2 1.5-8.1 #) [facility] AND [id number] 13:24:00 Test Item Value Reference Range Interpretation Comments UA Color (test code = Yellow *NA*(04/16/19 UA Color) 8:24 AM) [facility] AND [id number] 13:24:00 Test Item Value Reference Range Interpretation Comments UA Glucose (test code Negative (04/16/19 8:24 = UA Glucose) AM) [facility] AND [id number] 13:24:00 Test Item Value Reference Range Interpretation Comments UA Ketones (test code Negative *NA*(04/16/19 = UA Ketones) 8:24 AM) [facility] AND [id number] 13:24:00 Test Item Value Reference Range Interpretation Comments UA Bili (test code = Negative *NA*(04/16/19 UA Bili) 8:24 AM) [facility] AND [id number] 13:24:00 Test Item Value Reference Range Interpretation Comments UA pH (test code = UA pH) 5.5 1 5.0-8.0 [facility] AND [id number] 13:24:00 Test Item Value Reference Range Interpretation Comments UA Protein (test code Negative (04/16/19 8:24 = UA Protein) AM) [facility] AND [id number] 13:24:00 Test Item Value Reference Range Interpretation Comments UA Mucus (test code = UA Mucus) Few /LPF [facility] AND [id number] 13:24:00 Test Item Value Reference Range Interpretation Comments UA Bacteria (test code = UA Few /HPF Bacteria) [facility] AND [id number] 13:24:00 Test Item Value Reference Range Interpretation Comments UA RBC (test code = 0-2 /HPF See_Comment [Automa lakshmi message] The UA RBC) system which ge nerated this result tra nsmitted reference range : <=2. The reference range was not used to interpr et this result as jesse l/abnormal. [facility] AND [id number] 13:24:00 Test Item Value Reference Range Interpretation Comments UA WBC (test code = UA WBC) 0-2 /HPF [facility] AND [id number] 13:24:00 Test Item Value Reference Range Interpretation Comments UA Sq Epi (test code = UA Sq Epi) Few /LPF [facility] AND [id number] 13:24:00 Test Item Value Reference Range Interpretation Comments UA Leuk Est (test Negative (04/16/19 8:24 code = UA Leuk Est) AM) [facility] AND [id number] 13:24:00 Test Item Value Reference Range Interpretation Comments UA Nitrite (test code Negative (04/16/19 8:24 = UA Nitrite) AM) [facility] AND [id number] 13:24:00 Test Item Value Reference Range Interpretation Comments UA Urobilinogen (test code = UA 0.2 0.1-1.0 Urobilinogen) [facility] AND [id number] 13:24:00 Test Item Value Reference Range Interpretation Comments UA Blood (test code = Negative (04/16/19 8:24 UA Blood) AM) [facility] AND [id number] 13:24:00 Test Item Value Reference Range Interpretation Comments UA Turbidity (test code = Clear (04/16/19 8:24 UA Turbidity) AM) [facility] AND [id number] 13:24:00 Test Item Value Reference Range Interpretation Comments UA Spec Grav (test code *NA*(04/16/19 8:24 AM) = UA Spec Grav) [facility] AND [id number] 13:24:00 Test Item Value Reference Range Interpretation Comments UA Color (test code = Yellow *NA*(04/16/19 UA Color) 8:24 AM) [facility] AND [id number] 13:24:00 Test Item Value Reference Range Interpretation Comments UA Glucose (test code Negative (04/16/19 8:24 = UA Glucose) AM) [facility] AND [id number] 13:24:00 Test Item Value Reference Range Interpretation Comments UA Ketones (test code Negative *NA*(04/16/19 = UA Ketones) 8:24 AM) [facility] AND [id number] 13:24:00 Test Item Value Reference Range Interpretation Comments UA Bili (test code = Negative *NA*(04/16/19 UA Bili) 8:24 AM) [facility] AND [id number] 13:24:00 Test Item Value Reference Range Interpretation Comments UA pH (test code = UA pH) 5.5 1 5.0-8.0 [facility] AND [id number] 13:24:00 Test Item Value Reference Range Interpretation Comments UA Protein (test code Negative (04/16/19 8:24 = UA Protein) AM) [facility] AND [id number] 13:24:00 Test Item Value Reference Range Interpretation Comments UA Mucus (test code = UA Mucus) Few /LPF [facility] AND [id number] 13:24:00 Test Item Value Reference Range Interpretation Comments UA Bacteria (test code = UA Few /HPF Bacteria) [facility] AND [id number] 13:24:00 Test Item Value Reference Range Interpretation Comments UA RBC (test code = 0-2 /HPF See_Comment [Automa lakshmi message] The UA RBC) system which ge nerated this result tra nsmitted reference range : <=2. The reference range was not used to interpr et this result as jesse l/abnormal. [facility] AND [id number] 13:24:00 Test Item Value Reference Range Interpretation Comments UA WBC (test code = UA WBC) 0-2 /HPF [facility] AND [id number] 13:24:00 Test Item Value Reference Range Interpretation Comments UA Sq Epi (test code = UA Sq Epi) Few /LPF [facility] AND [id number] 13:24:00 Test Item Value Reference Range Interpretation Comments UA Leuk Est (test Negative (04/16/19 8:24 code = UA Leuk Est) AM) [facility] AND [id number] 13:24:00 Test Item Value Reference Range Interpretation Comments UA Nitrite (test code Negative (04/16/19 8:24 = UA Nitrite) AM) [facility] AND [id number] 13:24:00 Test Item Value Reference Range Interpretation Comments UA Urobilinogen (test code = UA 0.2 0.1-1.0 Urobilinogen) [facility] AND [id number] 13:24:00 Test Item Value Reference Range Interpretation Comments UA Blood (test code = Negative (04/16/19 8:24 UA Blood) AM) [facility] AND [id number] 13:24:00 Test Item Value Reference Range Interpretation Comments UA Turbidity (test code = Clear (04/16/19 8:24 UA Turbidity) AM) [facility] AND [id number] 13:24:00 Test Item Value Reference Range Interpretation Comments UA Spec Grav (test code *NA*(04/16/19 8:24 AM) = UA Spec Grav) [facility] [id number] 12:40:00 Test Item Value Reference Range Interpretation Comments Total CK (test code = Total CK) 61 12-191 [facility] [id number] 12:40:00 Test Item Value Reference Range Interpretation Comments Troponin-I (test code no gt See_Comment [Auto mated message] The = Troponin-I) system which g enerated this result transmit lakshmi reference range : <=0.40. The reference r dhaval was not used to interpr et this result as jesse l/abnormal. [facility] [id number] 12:40:00 Test Item Value Reference Range Interpretation Comments eGFR (test code = eGFR) 112 [facility] [id number] 12:40:00 Test Item Value Reference Range Interpretation Comments Calcium Lvl (test code = Calcium Lvl) 8.9 8.5-10.5 [facility]2019-07-30 12:40:00 Test Item Value Reference Range Interpretation Comments CO2 (test code = CO2) 26 24-32 [facility]2019-07-30 12:40:00 Test Item Value Reference Range Interpretation Comments Potassium Lvl (test code = Potassium 3.5 3.5-5.1 Lvl) [facility]2019-07-30 12:40:00 Test Item Value Reference Range Interpretation Comments Sodium Lvl (test code = Sodium Lvl) 134 135-145 [facility]2019-07-30 12:40:00 Test Item Value Reference Range Interpretation Comments Creatinine Lvl (test code = Creatinine 0.64 0.50-1.40 Lvl) [facility]2019-07-30 12:40:00 Test Item Value Reference Range Interpretation Comments Chloride Lvl (test code = Chloride Lvl) 102 95-109 [facility]2019-07-30 12:40:00 Test Item Value Reference Range Interpretation Comments BUN (test code = BUN) 7 7-22 [facility]2019-07-30 12:40:00 Test Item Value Reference Range Interpretation Comments Glucose Lvl (test code = Glucose Lvl) 94 70-99 [facility]2019-07-30 12:40:00 Test Item Value Reference Range Interpretation Comments AGAP (test code = AGAP) 9.5 10.0-20.0 [facility] H[id number] 12:40:00 Test Item Value Reference Range Interpretation Comments Eosinophils # (test code 0.2 See_Comment [A utomated message] The = Eosinophils #) system whic h generated this result tra nsmitted reference range : <=0.5. The reference r dhaval was not used to int erpret this result as normal/abnormal . [facility] Hos[id number] 12:40:00 Test Item Value Reference Range Interpretation Comments Monocytes # (test code 0.4 See_Comment [Aut omated message] The = Monocytes #) system which generated this result tra nsmitted reference range : <=0.8. The reference r dhaval was not used to int erpret this result as normal/abnormal . [facility] HospitalKqdijlkVNLXRERFAF2831-62-18 12:40:00 Test Item Value Reference Range Interpretation Comments Neutrophils # (test code = Neutrophils 2.9 1.5-8.1 #) [facility] H[id number] 12:40:00 Test Item Value Reference Range Interpretation Comments Lymphocytes # (test code = Lymphocytes 2.6 1.0-5.5 #) [facility] HospitalEpfbcotTLCYHHBWIP7425-81-77 12:40:00 Test Item Value Reference Range Interpretation Comments Lymphocytes (test code = Lymphocytes) 41.9 20.0-40.0 [facility] HospitalKxcuaqtVCTNSYBUUT8703-96-10 12:40:00 Test Item Value Reference Range Interpretation Comments Segs (test code = Segs) 46.9 45.0-75.0 [facility] HospitalVfvspzbCNMKEGNXUQ1231-46-29 12:40:00 Test Item Value Reference Range Interpretation Comments Basophils (test code = 0.7 See_Comment [Aut omated message] The Basophils) system which nerated this result tra nsmitted reference range : <=1.0. The reference r dhaval was not used to int erpret this result as normal/abnormal . [facility] HospitalHjixqtrZBFJXVQUNR9798-54-77 12:40:00 Test Item Value Reference Range Interpretation Comments Eosinophils (test code = 3.9 See_Comment [A utomated message] The Eosinophils) system which ge nerated this result tra nsmitted reference range : <=4.0. The reference r dhaval was not used to int erpret this result as normal/abnormal . [facility] HospitalChpbtsbEPJTXYCEAP0387-59-81 12:40:00 Test Item Value Reference Range Interpretation Comments Monocytes (test code = Monocytes) 6.6 2.0-12.0 [facility] HospitalTfclrdcUWJAEPJEVY2514-56-03 12:40:00 Test Item Value Reference Range Interpretation Comments PT (test code = PT) 12.9 s 12.0-14.7 [facility] Hospit[id number] 12:40:00 Test Item Value Reference Range Interpretation Comments INR (test code = INR) 0.99 1 0.85-1.17 [facility] Hospit[id number] 12:40:00 Test Item Value Reference Range Interpretation Comments MPV (test code = MPV) 9.3 7.4-10.4 [facility] Ho[id number] 12:40:00 Test Item Value Reference Range Interpretation Comments RDW (test code = RDW) 14.7 11.5-14.5 [facility] HospitalKitcbvmJGOQTPNMFV0626-79-28 12:40:00 Test Item Value Reference Range Interpretation Comments Platelet (test code = Platelet) 235 133-450 [facility] HospitalVlcjzvvQYOXDQQGXO4297-82-89 12:40:00 Test Item Value Reference Range Interpretation Comments MCHC (test code = MCHC) 35.0 32.0-36.0 [facility] HospitalYstnssyMTKOKTPMYO0576-86-41 12:40:00 Test Item Value Reference Range Interpretation Comments MCH (test code = MCH) 33.1 pg 27.0-31.0 [facility] HospitalUjierrbRGGQCNYKNU5051-82-12 12:40:00 Test Item Value Reference Range Interpretation Comments MCV (test code = MCV) 94.6 80.0-98.0 [facility] HospitalRgolizlHIMGLGYJYW5364-38-06 12:40:00 Test Item Value Reference Range Interpretation Comments WBC (test code = WBC) 6.1 3.7-10.4 [facility] Hospit[id number] 12:40:00 Test Item Value Reference Range Interpretation Comments Hct (test code = Hct) 37.0 36.0-48.0 [facility] HospitalHrmapaaXDVJWFZDRR2979-80-84 12:40:00 Test Item Value Reference Range Interpretation Comments Hgb (test code = Hgb) 13.0 12.0-16.0 [facility] Ho[id number] 12:40:00 Test Item Value Reference Range Interpretation Comments RBC (test code = RBC) 3.91 4.20-5.40 [facility] Hospit[id number] 12:40:00 Test Item Value Reference Range Interpretation Comments PTT (test code = PTT) 33.9 s 22.9-35.8 [facility] [id number] 12:40:00 Test Item Value Reference Range Interpretation Comments Total CK (test code = Total CK) 61 12-191 [facility] [id number] 12:40:00 Test Item Value Reference Range Interpretation Comments Troponin-I (test code no gt See_Comment [Auto mated message] The = Troponin-I) system which g enerated this result transmit lakshmi reference range : <=0.40. The reference r dhaval was not used to interpr et this result as jesse l/abnormal. [facility]2019-07-30 12:40:00 Test Item Value Reference Range Interpretation Comments eGFR (test code = eGFR) 112 [facility]2019-07-30 12:40:00 Test Item Value Reference Range Interpretation Comments Calcium Lvl (test code = Calcium Lvl) 8.9 8.5-10.5 [facility]2019-07-30 12:40:00 Test Item Value Reference Range Interpretation Comments CO2 (test code = CO2) 26 24-32 [facility]2019-07-30 12:40:00 Test Item Value Reference Range Interpretation Comments Potassium Lvl (test code = Potassium 3.5 3.5-5.1 Lvl) [facility]2019-07-30 12:40:00 Test Item Value Reference Range Interpretation Comments Sodium Lvl (test code = Sodium Lvl) 134 135-145 [facility]2019-07-30 12:40:00 Test Item Value Reference Range Interpretation Comments Creatinine Lvl (test code = Creatinine 0.64 0.50-1.40 Lvl) [facility]2019-07-30 12:40:00 Test Item Value Reference Range Interpretation Comments Chloride Lvl (test code = Chloride Lvl) 102 95-109 [facility]2019-07-30 12:40:00 Test Item Value Reference Range Interpretation Comments BUN (test code = BUN) 7 7-22 [facility]2019-07-30 12:40:00 Test Item Value Reference Range Interpretation Comments Glucose Lvl (test code = Glucose Lvl) 94 70-99 [facility]2019-07-30 12:40:00 Test Item Value Reference Range Interpretation Comments AGAP (test code = AGAP) 9.5 10.0-20.0 [facility] Hos[id number] 12:40:00 Test Item Value Reference Range Interpretation Comments Eosinophils # (test code 0.2 See_Comment [A utomated message] The = Eosinophils #) system whic h generated this result tra nsmitted reference range : <=0.5. The reference r dhaval was not used to int erpret this result as normal/abnormal . [facility] HospitalXmsejutSUJGEKULWE3512-08-84 12:40:00 Test Item Value Reference Range Interpretation Comments Monocytes # (test code 0.4 See_Comment [Aut omated message] The = Monocytes #) system which generated this result tra nsmitted reference range : <=0.8. The reference r dhaval was not used to int erpret this result as normal/abnormal . [facility] HospitalTxsxpqzRQYCHSZGQR2361-56-63 12:40:00 Test Item Value Reference Range Interpretation Comments Neutrophils # (test code = Neutrophils 2.9 1.5-8.1 #) [facility] HospitalPxekzvzUNRIWDGPEE5957-70-27 12:40:00 Test Item Value Reference Range Interpretation Comments Lymphocytes # (test code = Lymphocytes 2.6 1.0-5.5 #) [facility] Hospit[id number] 12:40:00 Test Item Value Reference Range Interpretation Comments Lymphocytes (test code = Lymphocytes) 41.9 20.0-40.0 [facility] HospitalVcubkxkQVXIBFVHCS8297-22-83 12:40:00 Test Item Value Reference Range Interpretation Comments Segs (test code = Segs) 46.9 45.0-75.0 [facility] HospitalSarnrngCVGZIZUIAS1818-53-43 12:40:00 Test Item Value Reference Range Interpretation Comments Basophils (test code = 0.7 See_Comment [Aut omated message] The Basophils) system which ge nerated this result tra nsmitted reference range : <=1.0. The reference r dhaval was not used to int erpret this result as normal/abnormal . [facility] HospitalVomkqmsDOUWTGSWQG1074-55-76 12:40:00 Test Item Value Reference Range Interpretation Comments Eosinophils (test code = 3.9 See_Comment [A utomated message] The Eosinophils) system which ge nerated this result tra nsmitted reference range : <=4.0. The reference r dhaval was not used to int erpret this result as normal/abnormal . [facility] HospitalFeergmfRYZYLFHWUK1622-33-41 12:40:00 Test Item Value Reference Range Interpretation Comments Monocytes (test code = Monocytes) 6.6 2.0-12.0 [facility] HospitalGpynvazIPODWYHETV9140-19-00 12:40:00 Test Item Value Reference Range Interpretation Comments PT (test code = PT) 12.9 s 12.0-14.7 [facility] HospitalBhckuruPEFZGSPZQE7984-99-86 12:40:00 Test Item Value Reference Range Interpretation Comments INR (test code = INR) 0.99 1 0.85-1.17 [facility] HospitalQhobmbgHPOTIPYPKL8502-59-33 12:40:00 Test Item Value Reference Range Interpretation Comments MPV (test code = MPV) 9.3 7.4-10.4 [facility] Hospit[id number] 12:40:00 Test Item Value Reference Range Interpretation Comments RDW (test code = RDW) 14.7 11.5-14.5 [facility] HospitalLmoimnuOHGCMGICPQ2875-61-16 12:40:00 Test Item Value Reference Range Interpretation Comments Platelet (test code = Platelet) 235 133-450 [facility] HospitalLchxlfeFDLDCLIBIZ1318-26-49 12:40:00 Test Item Value Reference Range Interpretation Comments MCHC (test code = MCHC) 35.0 32.0-36.0 [facility] Hospit[id number] 12:40:00 Test Item Value Reference Range Interpretation Comments MCH (test code = MCH) 33.1 pg 27.0-31.0 [facility] HospitalQtyhruwXSLEEQRRZB4705-56-82 12:40:00 Test Item Value Reference Range Interpretation Comments MCV (test code = MCV) 94.6 80.0-98.0 [facility] Hospit[id number] 12:40:00 Test Item Value Reference Range Interpretation Comments WBC (test code = WBC) 6.1 3.7-10.4 [facility] HospitalNrzmkqlKLEIVKAQZE6781-95-56 12:40:00 Test Item Value Reference Range Interpretation Comments Hct (test code = Hct) 37.0 36.0-48.0 [facility] HospitalEnjvxphEHTZPPCUBG6807-26-33 12:40:00 Test Item Value Reference Range Interpretation Comments Hgb (test code = Hgb) 13.0 12.0-16.0 [facility] H[id number] 12:40:00 Test Item Value Reference Range Interpretation Comments RBC (test code = RBC) 3.91 4.20-5.40 [facility] HospitalNrsriodMPNCJVIGDH5094-16-99 12:40:00 Test Item Value Reference Range Interpretation Comments PTT (test code = PTT) 33.9 s 22.9-35.8 [facility]2019-07-30 11:59:00 Test Item Value Reference Range Interpretation Comments eGFR (test code = eGFR) 114 [facility] [id number] 11:59:00 Test Item Value Reference Range Interpretation Comments POC Creatinine (test code = POC 0.6 0.5-1.4 Creatinine) [facility]2019-07-30 11:59:00 Test Item Value Reference Range Interpretation Comments eGFR (test code = eGFR) 114 [facility]2019-07-30 11:59:00 Test Item Value Reference Range Interpretation Comments POC Creatinine (test code = POC 0.6 0.5-1.4 Creatinine) [place]708-11-17 03:25:00 Test Item Value Reference Range Interpretation Comments Creatinine Lvl (test code = Creatinine 0.64 0.50-1.40 Lvl) [place] 337708-11-17 03:25:00 Test Item Value Reference Range Interpretation Comments AGAP (test code = AGAP) 11.4 10.0-20.0 [place]708-11-17 03:25:00 Test Item Value Reference Range Interpretation Comments Calcium Lvl (test code = Calcium Lvl) 8.5 8.5-10.5 [place] 337708-11-17 03:25:00 Test Item Value Reference Range Interpretation Comments CO2 (test code = CO2) 23 24-32 [place]708-11-17 03:25:00 Test Item Value Reference Range Interpretation Comments Sodium Lvl (test code = Sodium Lvl) 141 135-145 [facility]2018-11-17 03:25:00 Test Item Value Reference Range Interpretation Comments Chloride Lvl (test code = Chloride Lvl) 111 95-109 [facility]2018-11-17 03:25:00 Test Item Value Reference Range Interpretation Comments Potassium Lvl (test code = Potassium 4.4 3.5-5.1 Lvl) [facility]2018-11-17 03:25:00 Test Item Value Reference Range Interpretation Comments eGFR (test code = eGFR) 113 [place] 337708-11-17 03:25:00 Test Item Value Reference Range Interpretation Comments Glucose Lvl (test code = Glucose Lvl) 108 70-99 [facility]2018-11-17 03:25:00 Test Item Value Reference Range Interpretation Comments BUN (test code = BUN) 11 7-22 [place] 337708-11-17 03:25:00 Test Item Value Reference Range Interpretation Comments Creatinine Lvl (test code = Creatinine 0.64 0.50-1.40 Lvl) [facility]2018-11-17 03:25:00 Test Item Value Reference Range Interpretation Comments AGAP (test code = AGAP) 11.4 10.0-20.0 [facility]2018-11-17 03:25:00 Test Item Value Reference Range Interpretation Comments Calcium Lvl (test code = Calcium Lvl) 8.5 8.5-10.5 [place] 337708-11-17 03:25:00 Test Item Value Reference Range Interpretation Comments CO2 (test code = CO2) 23 24-32 [place] 337708-11-17 03:25:00 Test Item Value Reference Range Interpretation Comments Sodium Lvl (test code = Sodium Lvl) 141 135-145 [place] 337708-11-17 03:25:00 Test Item Value Reference Range Interpretation Comments Chloride Lvl (test code = Chloride Lvl) 111 95-109 [place] 337708-11-17 03:25:00 Test Item Value Reference Range Interpretation Comments Potassium Lvl (test code = Potassium 4.4 3.5-5.1 Lvl) [facility]2018-11-17 03:25:00 Test Item Value Reference Range Interpretation Comments eGFR (test code = eGFR) 113 [place] 337708-11-17 03:25:00 Test Item Value Reference Range Interpretation Comments Glucose Lvl (test code = Glucose Lvl) 108 70-99 [facility]2018-11-17 03:25:00 Test Item Value Reference Range Interpretation Comments BUN (test code = BUN) 11 - [facility]2018-11-17 01:55:00 Test Item Value Reference Range Interpretation Comments UDS Note (test code = See Note (08/03/18 7:55 UDS Note) PM) [facility]2018-11-17 01:55:00 Test Item Value Reference Range Interpretation Comments U Cocaine Scr (test Negative *NA*(08/03/18 code = U Cocaine Scr) 7:55 PM) [facility]2018-11-17 01:55:00 Test Item Value Reference Range Interpretation Comments U Phencyclidine Scr (test Negative code = U Phencyclidine *NA*(08/03/18 7:55 Scr) PM) [facility] [id number] 01:55:00 Test Item Value Reference Range Interpretation Comments U Opiate Scr (test Positive *ABN*(08/03/18 code = U Opiate Scr) 7:55 PM) [facility] [id number] 01:55:00 Test Item Value Reference Range Interpretation Comments U Cannab Scr (test Negative *NA*(08/03/18 code = U Cannab Scr) 7:55 PM) [facility] [id number] 01:55:00 Test Item Value Reference Range Interpretation Comments U Benzodiaz Scr (test Positive code = U Benzodiaz Scr) *ABN*(08/03/18 7:55 PM) [facility] [id number] 01:55:00 Test Item Value Reference Range Interpretation Comments U Tiffanie Scr (test code Negative *NA*(08/03/18 = U Tiffanie Scr) 7:55 PM) [facility] [id number] 01:55:00 Test Item Value Reference Range Interpretation Comments U Amph Scr (test code Positive *ABN*(08/03/18 = U Amph Scr) 7:55 PM) [facility] [id number] 01:55:00 Test Item Value Reference Range Interpretation Comments UA Urobilinogen (test code = UA <=1.0 mg/dL 0.1-1.0 Urobilinogen) [facility] [id number] 01:55:00 Test Item Value Reference Range Interpretation Comments UA Bacteria (test code = UA Occasional /HPF Bacteria) [facility] [id number] 01:55:00 Test Item Value Reference Range Interpretation Comments UA Spec Grav (test code = UA Spec 1.008 1 Grav) [facility] [id number] 01:55:00 Test Item Value Reference Range Interpretation Comments UA Turbidity (test code = Clear (08/03/18 7:55 UA Turbidity) PM) [facility] [id number] 01:55:00 Test Item Value Reference Range Interpretation Comments UA Color (test code = Yellow *NA*(08/03/18 UA Color) 7:55 PM) [facility] [id number] 01:55:00 Test Item Value Reference Range Interpretation Comments UA Glucose (test code = UA Negative mg/dL Glucose) [facility] AND [id number] 01:55:00 Test Item Value Reference Range Interpretation Comments UA pH (test code = UA pH) 5.0 1 5.0-8.0 [facility] AND [id number] 01:55:00 Test Item Value Reference Range Interpretation Comments UA Protein (test code = UA Negative mg/dL Protein) [facility] AND [id number] 01:55:00 Test Item Value Reference Range Interpretation Comments UA WBC (test code = 2 See_Comment [Automa lakshmi message] The UA WBC) system which ge nerated this result transmit lakshmi reference range : <=5. The reference range was not used to interpr et this result as jesse l/abnormal. [facility] AND [id number] 01:55:00 Test Item Value Reference Range Interpretation Comments UA RBC (test code = 3 See_Comment [Automa lakshmi message] The UA RBC) system which ge nerated this result transmit lakshmi reference range : <=2. The reference range was not used to interpr et this result as jesse l/abnormal. [facility] AND [id number] 01:55:00 Test Item Value Reference Range Interpretation Comments UA Leuk Est (test Moderate *ABN*(08/03/18 code = UA Leuk Est) 7:55 PM) [facility] AND [id number] 01:55:00 Test Item Value Reference Range Interpretation Comments UA Sq Epi (test code = UA Sq Epi) Few /LPF [facility] AND [id number] 01:55:00 Test Item Value Reference Range Interpretation Comments UA Ketones (test code = UA Negative mg/dL Ketones) [facility] AND [id number] 01:55:00 Test Item Value Reference Range Interpretation Comments UA Blood (test code = Negative (08/03/18 7:55 UA Blood) PM) [facility] AND [id number] 01:55:00 Test Item Value Reference Range Interpretation Comments UA Nitrite (test code Negative (08/03/18 7:55 = UA Nitrite) PM) [facility] AND [id number] 01:55:00 Test Item Value Reference Range Interpretation Comments UA Bili (test code = Negative *NA*(08/03/18 UA Bili) 7:55 PM) [facility] [id number] 01:55:00 Test Item Value Reference Range Interpretation Comments UDS Note (test code = See Note (08/03/18 7:55 UDS Note) PM) [facility] [id number] 01:55:00 Test Item Value Reference Range Interpretation Comments U Cocaine Scr (test Negative *NA*(08/03/18 code = U Cocaine Scr) 7:55 PM) [facility] [id number] 01:55:00 Test Item Value Reference Range Interpretation Comments U Phencyclidine Scr (test Negative code = U Phencyclidine *NA*(08/03/18 7:55 Scr) PM) [facility] [id number] 01:55:00 Test Item Value Reference Range Interpretation Comments U Opiate Scr (test Positive *ABN*(08/03/18 code = U Opiate Scr) 7:55 PM) [facility] [id number] 01:55:00 Test Item Value Reference Range Interpretation Comments U Cannab Scr (test Negative *NA*(08/03/18 code = U Cannab Scr) 7:55 PM) [facility] [id number] 01:55:00 Test Item Value Reference Range Interpretation Comments U Benzodiaz Scr (test Positive code = U Benzodiaz Scr) *ABN*(08/03/18 7:55 PM) [facility] [id number] 01:55:00 Test Item Value Reference Range Interpretation Comments U Tiffanie Scr (test code Negative *NA*(08/03/18 = U Tiffanie Scr) 7:55 PM) [facility] [id number] 01:55:00 Test Item Value Reference Range Interpretation Comments U Amph Scr (test code Positive *ABN*(08/03/18 = U Amph Scr) 7:55 PM) [facility] [id number] 01:55:00 Test Item Value Reference Range Interpretation Comments UA Urobilinogen (test code = UA <=1.0 mg/dL 0.1-1.0 Urobilinogen) [facility] [id number] 01:55:00 Test Item Value Reference Range Interpretation Comments UA Bacteria (test code = UA Occasional /HPF Bacteria) [facility] [id number] 01:55:00 Test Item Value Reference Range Interpretation Comments UA Spec Grav (test code = UA Spec 1.008 1 Grav) [facility] AND [id number] 01:55:00 Test Item Value Reference Range Interpretation Comments UA Turbidity (test code = Clear (08/03/18 7:55 UA Turbidity) PM) [facility] [id number] 01:55:00 Test Item Value Reference Range Interpretation Comments UA Color (test code = Yellow *NA*(08/03/18 UA Color) 7:55 PM) [facility] [id number] 01:55:00 Test Item Value Reference Range Interpretation Comments UA Glucose (test code = UA Negative mg/dL Glucose) [facility] AND [id number] 01:55:00 Test Item Value Reference Range Interpretation Comments UA pH (test code = UA pH) 5.0 1 5.0-8.0 [facility] AND [id number] 01:55:00 Test Item Value Reference Range Interpretation Comments UA Protein (test code = UA Negative mg/dL Protein) [facility] [id number] 01:55:00 Test Item Value Reference Range Interpretation Comments UA WBC (test code = 2 See_Comment [Automa lakshmi message] The UA WBC) system which ge nerated this result transmit lakshmi reference range : <=5. The reference range was not used to interpr et this result as jesse l/abnormal. [facility] [id number] 01:55:00 Test Item Value Reference Range Interpretation Comments UA RBC (test code = 3 See_Comment [Automa lakshmi message] The UA RBC) system which ge nerated this result transmit lakshmi reference range : <=2. The reference range was not used to interpr et this result as jesse l/abnormal. [facility] [id number] 01:55:00 Test Item Value Reference Range Interpretation Comments UA Leuk Est (test Moderate *ABN*(08/03/18 code = UA Leuk Est) 7:55 PM) [facility] AND [id number] 01:55:00 Test Item Value Reference Range Interpretation Comments UA Sq Epi (test code = UA Sq Epi) Few /LPF [facility] [id number] 01:55:00 Test Item Value Reference Range Interpretation Comments UA Ketones (test code = UA Negative mg/dL Ketones) [facility] [id number] 01:55:00 Test Item Value Reference Range Interpretation Comments UA Blood (test code = Negative (08/03/18 7:55 UA Blood) PM) [facility] AND [id number] 01:55:00 Test Item Value Reference Range Interpretation Comments UA Nitrite (test code Negative (08/03/18 7:55 = UA Nitrite) PM) [facility] AND [id number] 01:55:00 Test Item Value Reference Range Interpretation Comments UA Bili (test code = Negative *NA*(08/03/18 UA Bili) 7:55 PM) [facility] [id number] 01:44:00 Test Item Value Reference Range Interpretation Comments Troponin-I (test code no gt See_Comment [Auto mated message] The = Troponin-I) system which g enerated this result transmit lakshmi reference range : <=0.40. The reference r dhaval was not used to interpr et this result as jesse l/abnormal. [facility] [employer] [id number] 01:44:00 Test Item Value Reference Range Interpretation Comments Lipase Lvl (test code = Lipase Lvl) 123 73-393 [facility] [id number] 01:44:00 Test Item Value Reference Range Interpretation Comments Globulin (test code = Globulin) 3.6 2.7-4.2 [facility] [id number] 01:44:00 Test Item Value Reference Range Interpretation Comments A/G Ratio (test code = A/G Ratio) 1.1 1 0.7-1.6 [facility] [id number] 01:44:00 Test Item Value Reference Range Interpretation Comments B/C Ratio (test code = B/C Ratio) 16 1 6-25 [facility] [id number] 01:44:00 Test Item Value Reference Range Interpretation Comments AGAP (test code = AGAP) 12.8 10.0-20.0 [facility]2018-11-17 01:44:00 Test Item Value Reference Range Interpretation Comments eGFR (test code = eGFR) 109 [facility]2018-11-17 01:44:00 Test Item Value Reference Range Interpretation Comments Calcium Lvl (test code = Calcium Lvl) 9.0 8.5-10.5 [facility]2018-11-17 01:44:00 Test Item Value Reference Range Interpretation Comments Chloride Lvl (test code = Chloride Lvl) 107 95-109 [facility]2018-11-17 01:44:00 Test Item Value Reference Range Interpretation Comments CO2 (test code = CO2) 22 24-32 [facility]2018-11-17 01:44:00 Test Item Value Reference Range Interpretation Comments Bili Total (test code = Bili Total) 0.4 0.2-1.3 [facility]2018-11-17 01:44:00 Test Item Value Reference Range Interpretation Comments AST (test code = AST) 32 See_Comment [Auto mated message] The system which ge nerated this result transmit lakshmi reference range : <=37. The reference range was not used to interpr et this result as jesse l/abnormal. [facility]2018-11-17 01:44:00 Test Item Value Reference Range Interpretation Comments Alk Phos (test code = Alk Phos) 105 39-136 [facility]2018-11-17 01:44:00 Test Item Value Reference Range Interpretation Comments ALT (test code = ALT) 19 See_Comment [Auto mated message] The system which ge nerated this result transmit lakshmi reference range : <=65. The reference range was not used to interpr et this result as jesse l/abnormal. [facility]2018-11-17 01:44:00 Test Item Value Reference Range Interpretation Comments Total Protein (test code = Total 7.5 6.4-8.4 Protein) [facility]2018-11-17 01:44:00 Test Item Value Reference Range Interpretation Comments Albumin Lvl (test code = Albumin Lvl) 3.9 3.5-5.0 [facility]2018-11-17 01:44:00 Test Item Value Reference Range Interpretation Comments Sodium Lvl (test code = Sodium Lvl) 136 135-145 [facility]2018-11-17 01:44:00 Test Item Value Reference Range Interpretation Comments Potassium Lvl (test code = Potassium 5.8 3.5-5.1 Lvl) [facility]2018-11-17 01:44:00 Test Item Value Reference Range Interpretation Comments Creatinine Lvl (test code = Creatinine 0.70 0.50-1.40 Lvl) [facility]2018-11-17 01:44:00 Test Item Value Reference Range Interpretation Comments Glucose Lvl (test code = Glucose Lvl) 104 70-99 [facility]2018-11-17 01:44:00 Test Item Value Reference Range Interpretation Comments BUN (test code = BUN) 11 - [place] 337708-11-17 01:44:00 Test Item Value Reference Range Interpretation Comments Lactic Acid Lvl (test code = Lactic 0.8 0.5-2.2 Acid Lvl) [place] [id number] 01:44:00 Test Item Value Reference Range Interpretation Comments S Preg (test code = S Negative *NA*(08/03/18 Preg) 7:44 PM) [facility]QzeedskPNZVFUVDNX5741-17-81 01:44:00 Test Item Value Reference Range Interpretation Comments INR (test code = INR) 1.08 1 0.85-1.17 [place] [id number] 01:44:00 Test Item Value Reference Range Interpretation Comments PT (test code = PT) 14.0 s 12.0-14.7 [place] [id number] 01:44:00 Test Item Value Reference Range Interpretation Comments MCV (test code = MCV) 87.7 80.0-98.0 [facility] HospitalIoydijySILKJZOLNU7898-07-22 01:44:00 Test Item Value Reference Range Interpretation Comments MCH (test code = MCH) 30.3 pg 27.0-31.0 [facility] HospitalQpwsbmsJRCMOEIRBP9566-48-68 01:44:00 Test Item Value Reference Range Interpretation Comments MCHC (test code = MCHC) 34.5 32.0-36.0 [facility] HospitalGbjryysZCBKXAPVTO4307-28-05 01:44:00 Test Item Value Reference Range Interpretation Comments MPV (test code = MPV) 8.8 7.4-10.4 [place] [id number] 01:44:00 Test Item Value Reference Range Interpretation Comments RDW (test code = RDW) 14.0 11.5-14.5 [place] [id number] 01:44:00 Test Item Value Reference Range Interpretation Comments Platelet (test code = Platelet) 278 133-450 [facility] HospitalIlvjkppOEKADEFEQT6205-95-91 01:44:00 Test Item Value Reference Range Interpretation Comments RBC (test code = RBC) 4.54 4.20-5.40 [place] [address]-11-17 01:44:00 Test Item Value Reference Range Interpretation Comments Hgb (test code = Hgb) 13.8 12.0-16.0 [place] [id number] 01:44:00 Test Item Value Reference Range Interpretation Comments Hct (test code = Hct) 39.9 36.0-48.0 [facility] HospitalUgzezscUDPEYBIRJJ8944-05-37 01:44:00 Test Item Value Reference Range Interpretation Comments WBC (test code = WBC) 8.7 3.7-10.4 [facility] HospitalCxxgiujEQBRZBBJHL7157-05-14 01:44:00 Test Item Value Reference Range Interpretation Comments PTT (test code = PTT) 32.4 s 22.9-35.8 [facility] HospitalIhxwdjrRZBGSUPNMB0581-76-98 01:44:00 Test Item Value Reference Range Interpretation Comments Eosinophils (test code = 1.0 See_Comment [A utomated message] The Eosinophils) system which ge nerated this result tra nsmitted reference range : <=4.0. The reference r dhaval was not used to int erpret this result as normal/abnormal . [facility] HospitalIireisyFRNTELDWUV8743-16-07 01:44:00 Test Item Value Reference Range Interpretation Comments Neutrophils # (test code = Neutrophils 6.4 1.5-8.1 #) [facility] HospitalSfcdmanDNNOLKOFDS8673-71-98 01:44:00 Test Item Value Reference Range Interpretation Comments Lymphocytes # (test code = Lymphocytes 1.8 1.0-5.5 #) [facility] HospitalAysknlbHRKXOKHWXC2104-90-43 01:44:00 Test Item Value Reference Range Interpretation Comments Basophils (test code = 0.5 See_Comment [Aut omated message] The Basophils) system which ge nerated this result tra nsmitted reference range : <=1.0. The reference r dhaval was not used to int erpret this result as normal/abnormal . [facility]DGPDJLDVM4739[facility]96-43 01:44:00 Test Item Value Reference Range Interpretation Comments Monocytes # (test code 0.4 See_Comment [Aut omated message] The = Monocytes #) system which generated this result tra nsmitted reference range : <=0.8. The reference r dhaval was not used to int erpret this result as normal/abnormal . [facility]PrsnbpqRQXKBNRJKU5607-92-08 01:44:00 Test Item Value Reference Range Interpretation Comments Eosinophils # (test code 0.1 See_Comment [A utomated message] The = Eosinophils #) system whic h generated this result tra nsmitted reference range : <=0.5. The reference r dhaval was not used to int erpret this result as normal/abnormal . [facility]TafpsduVXKEICSEJF6837-19-65 01:44:00 Test Item Value Reference Range Interpretation Comments Monocytes (test code = Monocytes) 4.1 2.0-12.0 [facility]IMTZ[facility]34[facility] 01:44:00 Test Item Value Reference Range Interpretation Comments Segs (test code = Segs) 74.1 45.0-75.0 [facility] CenterJyqflezEVVRSKXZER4081-24-38 01:44:00 Test Item Value Reference Range Interpretation Comments Lymphocytes (test code = Lymphocytes) 20.3 20.0-40.0 [facility] CenterIzldhokFRDRJPLRON5594-88-05 01:44:00 Test Item Value Reference Range Interpretation Comments Etoh (%) (test code = Etoh (%)) no gt [facility]IvecjrqBLTSSNMNNF7171-74-48 01:44:00 Test Item Value Reference Range Interpretation Comments Ethanol Lvl (test code = Ethanol Lvl) no gt [facility]andannCARDIAC SYVEIDD1542-21-98 01:44:00 Test Item Value Reference Range Interpretation Comments Troponin-I (test code no gt See_Comment [Auto mated message] The = Troponin-I) system which g enerated this result transmit lakshmi reference range : <=0.40. The reference r dhaval was not used to interpr et this result as jesse l/abnormal. [facility] CenterCHEM JJDIN7584-49-84 01:44:00 Test Item Value Reference Range Interpretation Comments Lipase Lvl (test code = Lipase Lvl) 123 73-393 [facility]2018-11-17 01:44:00 Test Item Value Reference Range Interpretation Comments Globulin (test code = Globulin) 3.6 2.7-4.2 [facility]2018-11-17 01:44:00 Test Item Value Reference Range Interpretation Comments A/G Ratio (test code = A/G Ratio) 1.1 1 0.7-1.6 [facility]2018-11-17 01:44:00 Test Item Value Reference Range Interpretation Comments B/C Ratio (test code = B/C Ratio) 16 1 6-25 [facility]2018-11-17 01:44:00 Test Item Value Reference Range Interpretation Comments AGAP (test code = AGAP) 12.8 10.0-20.0 [facility]2018-11-17 01:44:00 Test Item Value Reference Range Interpretation Comments eGFR (test code = eGFR) 109 [facility]2018-11-17 01:44:00 Test Item Value Reference Range Interpretation Comments Calcium Lvl (test code = Calcium Lvl) 9.0 8.5-10.5 [facility]2018-11-17 01:44:00 Test Item Value Reference Range Interpretation Comments Chloride Lvl (test code = Chloride Lvl) 107 95-109 [facility]2018-11-17 01:44:00 Test Item Value Reference Range Interpretation Comments CO2 (test code = CO2) 22 24-32 [facility]2018-11-17 01:44:00 Test Item Value Reference Range Interpretation Comments Bili Total (test code = Bili Total) 0.4 0.2-1.3 [facility]2018-11-17 01:44:00 Test Item Value Reference Range Interpretation Comments AST (test code = AST) 32 See_Comment [Auto mated message] The system which ge nerated this result transmit lakshmi reference range : <=37. The reference range was not used to interpr et this result as jesse l/abnormal. [facility]2018-11-17 01:44:00 Test Item Value Reference Range Interpretation Comments Alk Phos (test code = Alk Phos) 105 39-136 [facility]2018-11-17 01:44:00 Test Item Value Reference Range Interpretation Comments ALT (test code = ALT) 19 See_Comment [Auto mated message] The system which ge nerated this result transmit lakshmi reference range : <=65. The reference range was not used to interpr et this result as jesse l/abnormal. [facility]2018-11-17 01:44:00 Test Item Value Reference Range Interpretation Comments Total Protein (test code = Total 7.5 6.4-8.4 Protein) [facility]2018-11-17 01:44:00 Test Item Value Reference Range Interpretation Comments Albumin Lvl (test code = Albumin Lvl) 3.9 3.5-5.0 [facility]2018-11-17 01:44:00 Test Item Value Reference Range Interpretation Comments Sodium Lvl (test code = Sodium Lvl) 136 135-145 [facility]2018-11-17 01:44:00 Test Item Value Reference Range Interpretation Comments Potassium Lvl (test code = Potassium 5.8 3.5-5.1 Lvl) [facility]2018-11-17 01:44:00 Test Item Value Reference Range Interpretation Comments Creatinine Lvl (test code = Creatinine 0.70 0.50-1.40 Lvl) [facility]2018-11-17 01:44:00 Test Item Value Reference Range Interpretation Comments Glucose Lvl (test code = Glucose Lvl) 104 70-99 [facility]2018-11-17 01:44:00 Test Item Value Reference Range Interpretation Comments BUN (test code = BUN) 11 7-22 [facility]2018-11-17 01:44:00 Test Item Value Reference Range Interpretation Comments Lactic Acid Lvl (test code = Lactic 0.8 0.5-2.2 Acid Lvl) [facility]KhjqnxgYQAJMCYOVXZPR6285-67-45 01:44:00 Test Item Value Reference Range Interpretation Comments S Preg (test code = S Negative *NA*(08/03/18 Preg) 7:44 PM) [facility] HospitalCjxjtzuKXDINKYNUQ2353-11-72 01:44:00 Test Item Value Reference Range Interpretation Comments INR (test code = INR) 1.08 1 0.85-1.17 [facility] HospitalJtqhyusGELIXXPVPT1865-76-96 01:44:00 Test Item Value Reference Range Interpretation Comments PT (test code = PT) 14.0 s 12.0-14.7 [facility] HospitalLavgdwgMYQKVKKMCT3461-61-64 01:44:00 Test Item Value Reference Range Interpretation Comments MCV (test code = MCV) 87.7 80.0-98.0 [facility] HospitalXyugbafXUOCQIHWWX9783-55-41 01:44:00 Test Item Value Reference Range Interpretation Comments MCH (test code = MCH) 30.3 pg 27.0-31.0 [facility] HospitalMtneuuxERNDYTRIOK7500-70-07 01:44:00 Test Item Value Reference Range Interpretation Comments MCHC (test code = MCHC) 34.5 32.0-36.0 [facility] HospitalVqjukesXRZHXGMGLI2973-34-92 01:44:00 Test Item Value Reference Range Interpretation Comments MPV (test code = MPV) 8.8 7.4-10.4 [facility] HospitalCsrhpnfMNODHNDCPS0276-76-12 01:44:00 Test Item Value Reference Range Interpretation Comments RDW (test code = RDW) 14.0 11.5-14.5 [facility] HospitalJlynjppNTBMPOXKQY6616-88-20 01:44:00 Test Item Value Reference Range Interpretation Comments Platelet (test code = Platelet) 278 133-450 [facility] HospitalCbpelxsPFAOTFLXXA9638-34-04 01:44:00 Test Item Value Reference Range Interpretation Comments RBC (test code = RBC) 4.54 4.20-5.40 [facility] HospitalLycwnmrDBZRMQKGAT5445-23-98 01:44:00 Test Item Value Reference Range Interpretation Comments Hgb (test code = Hgb) 13.8 12.0-16.0 [facility] HospitalHzjreahAJJHXADQPE3282-60-46 01:44:00 Test Item Value Reference Range Interpretation Comments Hct (test code = Hct) 39.9 36.0-48.0 [facility] HospitalAnlevncIMRDPQALGN0740-70-14 01:44:00 Test Item Value Reference Range Interpretation Comments WBC (test code = WBC) 8.7 3.7-10.4 [facility] HospitalJwotdzvQZBRISRHNU7845-16-10 01:44:00 Test Item Value Reference Range Interpretation Comments PTT (test code = PTT) 32.4 s 22.9-35.8 [facility] HospitalCxspajsKAVEUJNWRO1822-97-94 01:44:00 Test Item Value Reference Range Interpretation Comments Eosinophils (test code = 1.0 See_Comment [A utomated message] The Eosinophils) system which ge nerated this result tra nsmitted reference range : <=4.0. The reference r dhaval was not used to int erpret this result as normal/abnormal . [facility] HospitalWtrlzmmGFJJISEEOB8581-53-21 01:44:00 Test Item Value Reference Range Interpretation Comments Neutrophils # (test code = Neutrophils 6.4 1.5-8.1 #) [facility] HospitalIfydifzZNKXZAUZKR3515-21-16 01:44:00 Test Item Value Reference Range Interpretation Comments Lymphocytes # (test code = Lymphocytes 1.8 1.0-5.5 #) [facility] HospitalDwhfmlzGZXFKDXWRB6046-05-65 01:44:00 Test Item Value Reference Range Interpretation Comments Basophils (test code = 0.5 See_Comment [Aut omated message] The Basophils) system which ge nerated this result tra nsmitted reference range : <=1.0. The reference r dhaval was not used to int erpret this result as normal/abnormal . [facility] HospitalNvwuoomHQBOWSZHVD8231-00-34 01:44:00 Test Item Value Reference Range Interpretation Comments Monocytes # (test code 0.4 See_Comment [Aut omated message] The = Monocytes #) system which generated this result tra nsmitted reference range : <=0.8. The reference r dhaval was not used to int erpret this result as normal/abnormal . [facility] HospitalWjztqkiZRTKYNAKVE3974-56-33 01:44:00 Test Item Value Reference Range Interpretation Comments Eosinophils # (test code 0.1 See_Comment [A utomated message] The = Eosinophils #) system whic h generated this result tra nsmitted reference range : <=0.5. The reference r dhaval was not used to int erpret this result as normal/abnormal . [facility] HospitalKcmqctcSTQDCMKCIM7306-86-74 01:44:00 Test Item Value Reference Range Interpretation Comments Monocytes (test code = Monocytes) 4.1 2.0-12.0 [facility] HospitalHmziapdFSJKRBEOIC0795-15-80 01:44:00 Test Item Value Reference Range Interpretation Comments Segs (test code = Segs) 74.1 45.0-75.0 [facility] HospitalSgjgpekTSMOHFGUHX5315-40-76 01:44:00 Test Item Value Reference Range Interpretation Comments Lymphocytes (test code = Lymphocytes) 20.3 20.0-40.0 [facility] CenterIhdtknnISUDRFMEJK8709-05-26 01:44:00 Test Item Value Reference Range Interpretation Comments Etoh (%) (test code = Etoh (%)) no gt [facility] CenterGjuqyosPPIZHUSSKN6309-69-80 01:44:00 Test Item Value Reference Range Interpretation Comments Ethanol Lvl (test code = Ethanol Lvl) no [facility] Notes Date/Time Note Provider Source 2019-04-30 EXAM: CT HEAD WITHOUT CONTRAST [facility] 04:38:00-00:00 DATE: 04/30/2019 4:38 CDT INDICATION: 38 years old Female patient with his tory of - r/o bleed. TECHNIQUE: Multiple axial im ages were obtained through the head from vertex to the skull base. Axial bone algorithm reconstruction images are provided. COMPARISON: MRI brain 05/17/2019. FINDINGS: No acute intracranial hemorr fernando is identified. The ventricles are normal in size. No parenchymal mass, mass effect or midline shift is present. The panchal- white matter differentiation is maintained. No pathologic extra axial fluid is identified. The visualized paranasal sin uses are clear. No mastoid effusion is identified. The bony calvarium is intact. IMPRESSION: 1. No acute intracranial hemorrhage. 2019-04-30 EXAM: CT HEAD WITHOUT CONTRAST [facility] 04:38:00-00:00 DATE: 04/30/2019 4:38 CDT INDICATION: 38 years old Female patient with his tory of - r/o bleed. TECHNIQUE: Multiple axial im ages were obtained through the head from vertex to the skull base. Axial bone algorithm reconstruction images are provided. COMPARISON: MRI brain 05/17/2019. FINDINGS: No acute intracranial hemorr fernando is identified. The ventricles are normal in size. No parenchymal mass, mass effect or midline shift is present. The panchal- white matter differentiation is maintained. No pathologic extra axial fluid is identified. The visualized paranasal sin uses are clear. No mastoid effusion is identified. The bony calvarium is intact. IMPRESSION: 1. No acute intracranial hemorrhage. 2019-04-16 EXAM: MRI BRAIN WITHOUT CONTRAST [facility] 07:12:00-00:00 DATE: 04/16/2019 7:12 CDT INDICATION: Right-sided weakness COMPARISON: Same day CT brai n and same day CTA brain/neck extra perfusion examinations. TECHNIQUE: Multiplanar, mult isequence abbreviated stroke protocol MRI of the brain without contrast. IV contrast: None. FINDINGS: Diffusion-weighted images fail to demonstrate an y recent ischemic change. There is no mass lesion, sig nal change, or structural abnormality. The ventricles and extra-axial spaces are normal. There is no acute or chronic hemorrhagic change. The intracranial arterial and venous structures demonstrate normal flow voids. The visible paranasal sinuses and skull base are unremarkable. IMPRESSION: No acute hemorrhage or ischemic phaneuf hospital. 2019-04-16 EXAM: MRI BRAIN WITHOUT CONTRAST [facility] 07:12:00-00:00 DATE: 04/16/2019 7:12 CDT INDICATION: Right-sided weakness COMPARISON: Same day CT brai n and same day CTA brain/neck extra perfusion examinations. TECHNIQUE: Multiplanar, mult isequence abbreviated stroke protocol MRI of the brain without contrast. IV contrast: None. FINDINGS: Diffusion-weighted images fail to demonstrate an y recent ischemic change. There is no mass lesion, sig nal change, or structural abnormality. The ventricles and extra-axial spaces are normal. There is no acute or chronic hemorrhagic change. The intracranial arterial and venous structures demonstrate normal flow voids. The visible paranasal sinuses and skull base are unremarkable. IMPRESSION: No acute hemorrhage or ischemic phaneuf hospital. 2019-04-16 EXAM: CTA BRAIN [facility] 06:50:00-00:00 EXAM: CTA NECK EXAM: CT PERFUSION BRAIN DATE: 04/16/2019 6:50 CDT INDICATION: 38 years old Female patient with his tory of - stroke. COMPARISON: None. TECHNIQUE: - Dynamic CT perfusion image s on a limited area of the brain parenchyma are performed during bolus injection of iodinated contrast material. Color maps of relative cerebral blood flow, relative cerebral blood volume, time to peak, and mean transit time are created on an independent workstation and are submitted along with the source image data. -Rapid acquisition spiral CT images of the brain and neck were obtained between the aortic arch and the cranial vertex during intravenous infusion of iodinated contrast for the purposes of CT angiograph y. 3-D CT angiographic image s are created using MIP technique at the acquisition workstation. The source images are also presented for interpretation. FINDINGS: CT ANGIOGRAM OF THE NECK: The common carotid arteries are patent bilaterally. The carotid bulbs and the origins of the internal carotid arteries are patent bilaterally. Cervical internal carotid arteries are patent bilaterally. The vertebral arteries are codominant and patent bilaterally. CT ANGIOGRAM OF THE HEAD: No focal occlusion, severe s tenosis or aneurysmal dilatation of the anterior or posterior circulation is identified. CT PERFUSION: There is no regional abnorma lity in cerebral blood flow, cerebral blood volume, or transit time in the imaged areas of the brain to suggest active oligemia or infarction. IMPRESSION: 1. No focal occlusion, sever e stenosis or aneurysmal dilatation of the proximal major branches of the anterior posterior circulation. 2. Patent major neck arteries. 2019-04-16 EXAM: CT HEAD WITHOUT CONTRAST [facility] 06:50:00-00:00 DATE: 04/16/2019 6:50 CDT INDICATION: 38 years old Female patient with his tory of - stroke. TECHNIQUE: Multiple axial im ages were obtained through the head from vertex to the skull base. Axial bone algorithm reconstruction images are provided. COMPARISON: None. FINDINGS: No acute intracranial hemorr fernando is identified. The ventricles are normal in size. No parenchymal mass, mass effect or midline shift is present. The panchal- white matter differentiation is maintained. No pathologic extra axial fluid is identified. The visualized paranasal sin uses are clear. No mastoid effusion is identified. The bony calvarium is intact. IMPRESSION: 1. No CT evidence of acute intracranial abnormal ity. 2019-04-16 EXAM: XR CHEST 1 VIEW [facility] 06:50:00-00:00 DATE: 04/16/2019 6:50 CDT INDICATION: - stroke COMPARISON: None TECHNIQUE: AP chest, 2 images FINDINGS: Lines and tubes: None. Lungs and pleura: No pulmonary or pleural based abnormality is identified. Heart and mediastinum: Unremarkable. Chest wall: Unremarkable. Bones: No acute bony abnormality is identified. IMPRESSION: No acute cardiopulmonary abnormality . 2019-04-16 EXAM: CTA BRAIN [facility] 06:50:00-00:00 EXAM: CTA NECK EXAM: CT PERFUSION BRAIN DATE: 04/16/2019 6:50 CDT INDICATION: 38 years old Female patient with his tory of - stroke. COMPARISON: None. TECHNIQUE: - Dynamic CT perfusion image s on a limited area of the brain parenchyma are performed during bolus injection of iodinated contrast material. Color maps of relative cerebral blood flow, relative cerebral blood volume, time to peak, and mean transit time are created on an independent workstation and are submitted along with the source image data. -Rapid acquisition spiral CT images of the brain and neck were obtained between the aortic arch and the cranial vertex during intravenous infusion of iodinated contrast for the purposes of CT angiograph y. 3-D CT angiographic image s are created using MIP technique at the acquisition workstation. The source images are also presented for interpretation. FINDINGS: CT ANGIOGRAM OF THE NECK: The common carotid arteries are patent bilaterally. The carotid bulbs and the origins of the internal carotid arteries are patent bilaterally. Cervical internal carotid arteries are patent bilaterally. The vertebral arteries are codominant and patent bilaterally. CT ANGIOGRAM OF THE HEAD: No focal occlusion, severe s tenosis or aneurysmal dilatation of the anterior or posterior circulation is identified. CT PERFUSION: There is no regional abnorma lity in cerebral blood flow, cerebral blood volume, or transit time in the imaged areas of the brain to suggest active oligemia or infarction. IMPRESSION: 1. No focal occlusion, sever e stenosis or aneurysmal dilatation of the proximal major branches of the anterior posterior circulation. 2. Patent major neck arteries. 2019-04-16 EXAM: CT HEAD WITHOUT CONTRAST [facility] 06:50:00-00:00 DATE: 04/16/2019 6:50 CDT INDICATION: 38 years old Female patient with his tory of - stroke. TECHNIQUE: Multiple axial im ages were obtained through the head from vertex to the skull base. Axial bone algorithm reconstruction images are provided. COMPARISON: None. FINDINGS: No acute intracranial hemorr fernando is identified. The ventricles are normal in size. No parenchymal mass, mass effect or midline shift is present. The panchal- white matter differentiation is maintained. No pathologic extra axial fluid is identified. The visualized paranasal sin uses are clear. No mastoid effusion is identified. The bony calvarium is intact. IMPRESSION: 1. No CT evidence of acute intracranial abnormal ity. 2019-04-16 EXAM: XR CHEST 1 VIEW [facility] 06:50:00-00:00 DATE: 04/16/2019 6:50 CDT INDICATION: - stroke COMPARISON: None TECHNIQUE: AP chest, 2 images FINDINGS: Lines and tubes: None. Lungs and pleura: No pulmonary or pleural based abnormality is identified. Heart and mediastinum: Unremarkable. Chest wall: Unremarkable. Bones: No acute bony abnormality is identified. IMPRESSION: No acute cardiopulmonary abnormality . 2018-08-03 Clinical Indication: - LLQ pain, ovarian cyst on CT. [facility] 22:20:00-00:00 Comparison: None. TECHNIQUE: Initially transab dominal imaging was performed of the pelvis. The uterus and/or ovaries were not optimally evaluated and therefore transvaginal imaging was performed. Grayscale, color Doppler and duplex imaging modalities were utilized.. Findings: Uterus and cervix: 7.5 x 4.8 x 5.3 cm. Versus retroverted and retroflexed. There is an intrauterine conception device which appears appropriately positioned. Right ovary: Normal, 3.6 x 2.2 x 2.1 cm. Normal color and Doppler flow. Left ovary: 4.2 x 2.9 x 2.8 cm. There is an atypical left ovarian lesion with hypoechoic center and a thick vascular rim measuring up to 2.2 cm. Normal Doppler flow to the left ovary. Cul-de-sac: Small amount of free fluid adjacent to the right ovary. IMPRESSION: Complex left ovarian lesion likely an involuting or hemorrhagic cyst or follicle. Consider follow-up pelvic ultrasound in 5-6 weeks after 1 menstrual cycle. Small amount of pelvic ascites. Intrauterine conception device appears in approp riate position. SL: SHANELLECEEFeliz 2018-08-03 Clinical Indication: - LLQ pain, ovarian cyst on CT. [facility] 22:20:00-00:00 Comparison: None. TECHNIQUE: Initially transab dominal imaging was performed of the pelvis. The uterus and/or ovaries were not optimally evaluated and therefore transvaginal imaging was performed. Grayscale, color Doppler and duplex imaging modalities were utilized.. Findings: Uterus and cervix: 7.5 x 4.8 x 5.3 cm. Versus retroverted and retroflexed. There is an intrauterine conception device which appears appropriately positioned. Right ovary: Normal, 3.6 x 2.2 x 2.1 cm. Normal color and Doppler flow. Left ovary: 4.2 x 2.9 x 2.8 cm. There is an atypical left ovarian lesion with hypoechoic center and a thick vascular rim measuring up to 2.2 cm. Normal Doppler flow to the left ovary. Cul-de-sac: Small amount of free fluid adjacent to the right ovary. IMPRESSION: Complex left ovarian lesion likely an involuting or hemorrhagic cyst or follicle. Consider follow-up pelvic ultrasound in 5-6 weeks after 1 menstrual cycle. Small amount of pelvic ascites. Intrauterine conception device appears in approp riate position. SL: KEY 2018-08-03 Study: ED Abdomen/Pelvis IV contrast only CT [facility] 19:23:00-00:00 Clinical Indication: - RLQ pain Comparison: None TECHNIQUE: Multiple axial CT images of the abdomen and pelvis were acquired following the administration of intravenous contrast. Sagittal and coronal reformatted images were performed. CT Radiation Dose DLP 651 mGy-cm FINDINGS: The visualized lung bases are clear bi laterally. Scattered bilateral renal hy podense cysts are seen with largest measuring 1.2 cm in the left kidney. Liver, gallbladder, pancreas, spleen, and adrenal glands are normal in appearance. No intrahepatic or extrahepatic biliary duct dilatation is seen. Intrauterine device in the u terus is seen. Rim-enhancing, hypodense 2.1 cm left ovarian cyst is seen, may represent corpus luteal cyst. Right ovary is unremarkable. Trace free pelvic fluid is present. The visualized hollow viscer a and appendix are normal in appearance. Mild rectocele is noted. No free air or pathologic adenopathy is seen. Moderate amount of fecal material throughout colon and rectum is seen. Bilateral breast im plants are seen. No acute osseous abnormality is noted. IMPRESSION: 1. No acute intra-abdominal/pelvic abnormality. 2. 2.1 cm rim-enhancing left ovarian cystic lesion, suspicious for corpus luteal cyst. SL: ROHAN 2018-08-03 Study: ED Abdomen/Pelvis IV contrast only CT [facility] 19:23:00-00:00 Clinical Indication: - RLQ pain Comparison: None TECHNIQUE: Multiple axial CT images of the abdomen and pelvis were acquired following the administration of intravenous contrast. Sagittal and coronal reformatted images were performed. CT Radiation Dose DLP 651 mGy-cm FINDINGS: The visualized lung bases are clear bi laterally. Scattered bilateral renal hy podense cysts are seen with largest measuring 1.2 cm in the left kidney. Liver, gallbladder, pancreas, spleen, and adrenal glands are normal in appearance. No intrahepatic or extrahepatic biliary duct dilatation is seen. Intrauterine device in the u terus is seen. Rim-enhancing, hypodense 2.1 cm left ovarian cyst is seen, may represent corpus luteal cyst. Right ovary is unremarkable. Trace free pelvic fluid is present. The visualized hollow viscer a and appendix are normal in appearance. Mild rectocele is noted. No free air or pathologic adenopathy is seen. Moderate amount of fecal material throughout colon and rectum is seen. Bilateral breast im plants are seen. No acute osseous abnormality is noted. IMPRESSION: 1. No acute intra-abdominal/pelvic abnormality. 2. 2.1 cm rim-enhancing left ovarian cystic lesion, suspicious for corpus luteal cyst. SL: SLEE-PC
[2023-03-20 16:33] LABS: Specific Gravity < 1.005 (1.005-1.030); Urine Bacteria <20 /HPF (<20); Urine Bilirubin NEGATIVE (Negative); Urine Blood Negative (Negative); Urine Clarity Turbid (Clear); Urine Color Colorless (Yellow); Urine Glucose NEGATIVE (Negative); Urine Mucus Slight /HPF (None Seen); Urine Protein NEGATIVE (Negative); Urine RBC <5 /HPF (None Seen); Urine Urobilinogen Normal (Normal); Urine pH 5.5 (5.0-7.0)
[2023-03-20 16:44] LABS: Absolute Lymphocytes (CBC) 2.5 K/uL (0.7-4.9); Hematocrit 43.2 % (36.0-45.0); Lymphocytes % 25.1 % (15.3-44.8); MCV 93.9 fL (80-100); MPV 9.3 fL (7.6-11.3)
[2023-03-20 17:05] LABS: Albumin 4.1 g/dL (3.4-5.0); Bilirubin Total 0.7 mg/dL (0.2-1.0); Potassium 3.3 mEq/L (3.5-5.1); Protein, Total 7.5 g/dL (6.4-8.2)
--- NOTE | 2023-03-20 17:07 | RAD REPORT ---
EXAM DESCRIPTION: RAD - Chest Single View - 03/20/2023 5:01 pm CLINICAL HISTORY: PALPITATIONS Chest pain. COMPARISON: Chest Single View dated 11/20/2019 FINDINGS: Portable technique limits examination quality. The lungs are grossly clear. The heart is normal in size. No displaced fractures. IMPRESSION: No acute intrathoracic process suspected.
--- NOTE | 2023-03-20 18:46 | RAD REPORT ---
EXAM DESCRIPTION: CTAbdomen Pelvis W Contrast - 03/20/2023 6:38 pm CLINICAL HISTORY: Abdominal pain. ABD PAIN COMPARISON: <Comparisons> TECHNIQUE: Biphasic CT imaging of the abdomen and pelvis was performed with 100 ml non-ionic IV cont rast. All CT scans are performed using dose optimization technique as appropriate and may include automated exposure control or mA/KV adjustment according to patient size. FINDINGS: The lung bases are clear. The liver, spleen, pancreas, adrenal glands and kidneys are within normal limits. No bowel obstruction, free air, free fluid or abscess. The appendix is normal. IUD noted. No evidenc e of significant lymphadenopathy. No suspicious bony findings. IMPRESSION: No acute intra-abdominal or pelvic finding.
--- NOTE | 2023-03-20 18:54 | EDPHYS ---
Physician Documentation [facility] Name: Theresa Mcguire Age: 42 yrs Sex: Female : 1980 Arrival Date: 03/20/2023 Time: 15:42 Bed 8 Private MD: ED Physician Terrecne Yancey HPI: 03/20 16:02 This 42 yrs old Female presents to ER via Unassigned with complaints of Urinary kb Problem, Back Pain. 16:02 The patient presents with flank pain, bilaterally, urinary symptoms, frequency. Onset: kb The symptoms/episode began/occurred 3 week(s) ago, and became worse 3 day(s) ago. Modifying factors: The symptoms are alleviated by nothing, the symptoms are aggravated by nothing. Associated signs and symptoms: Pertinent positives: fever, urinary frequency. Severity of symptoms: At their worst the symptoms were moderate, in the emergency department the symptoms are unchanged. The patient has not experienced similar symptoms in the past. The patient has not recently seen a physician. Pt reports urinary frequency for 3 weeks. States she was trying to treat at home for a UTI, but now has low back pain, abd pain, palpitations, shortness of breath, fever, chills that started 3 days ago. Historical: - Allergies: 16:09 Levaquin; mb9 16:09 QUINOLONES; mb9 16:09 Toradol; mb9 16:09 tramadol; mb9 - Home Meds: 16:09 Alprazolam Oral [Active]; mb9 - PMHx: 16:09 Anxiety; mb9 - Immunization history:: Adult Immunizations up to date. - Social history:: Smoking status: Patient reports the use of cigarette tobacco products, smokes one pack cigarettes per day. ROS: 16:00 Neuro: Negative for headache, weakness, numbness, tingling, and seizure. kb 16:00 Constitutional: Positive for chills, fever. 16:00 Cardiovascular: Positive for palpitations. 16:00 Respiratory: Positive for shortness of breath. 16:00 Abdomen/GI: Positive for abdominal pain, nausea, Negative for vomiting, diarrhea. 16:00 : Positive for urinary symptoms, flank pain, urinary frequency. Exam: 16:01 Constitutional: This is a well developed, well nourished patient who is awake, alert, kb and in no acute distress. Head/Face: Normocephalic, atraumatic. ENT: Moist Mucous membranes Cardiovascular: Regular rate and rhythm with a normal S1 and S2. No gallops, murmurs, or rubs. No pulse deficits. Respiratory: Respirations even and unlabored. No increased work of breathing. Talking in full sentences Abdomen/GI: Soft, non-tender. No distention Back: No spinal tenderness. No costovertebral tenderness. Full range of motion. Skin: Warm, dry with normal turgor. Normal color. MS/ Extremity: Pulses equal, no cyanosis. Neurovascular intact. Full, normal range of motion. Neuro: Awake and alert, GCS 15, oriented to person, place, time, and situation. Moves all extremities. Normal gait. 16:21 ECG was reviewed by the Attending Physician. Vital Signs: 16:07 BP 156 / 86; Pulse 98; Resp 18; Temp 98.7(O); Pulse Ox 100% on R/A; Weight 68.04 kg; mb9 Height 5 ft. 7 in. ; 16:58 BP 136 / 85; Pulse 76; Resp 15; Pulse Ox 97% ; jl7 18:00 BP 135 / 84; Pulse 75; Resp 15; Pulse Ox 100% ; jl7 16:07 Body Mass Index 23.49 (68.04 kg, 170.18 cm) 9 MDM: 15:45 Patient medically screened. 16:01 Differential diagnosis: uti, pyelonephritis, sepsis. Data reviewed: vital signs, nurses kb notes. 18:53 Counseling: I had a detailed discussion with the patient and/or guardian regarding: the kb historical points, exam findings, and any diagnostic results supporting the discharge/admit diagnosis, lab results, radiology results, the need for outpatient follow up, a family practitioner, to return to the emergency department if symptoms worsen or persist or if there are any questions or concerns that arise at home. 03/20 15:50 Order name: Blood Culture Adult (2) 03/20 15:50 Order name: CBC with Diff; Complete Time: 17:31 kb 03/20 15:50 Order name: CMP; Complete Time: 17:05 kb 03/20 15:50 Order name: Lactate w/ 2H reflex if indic.; Complete Time: 17:05 kb 03/20 15:50 Order name: Protime (+inr); Complete Time: 16:51 kb 03/20 15:50 Order name: Ptt, Activated; Complete Time: 16:51 kb 03/20 15:50 Order name: Urinalysis w/ reflexes; Complete Time: 16:34 kb 03/20 16:46 Order name: Glucose, Ancillary Testing; Complete Time: 16:48 EDMS 03/20 15:50 Order name: Chest Single View XRAY; Complete Time: 17:12 kb 03/20 17:35 Order name: CT Abd/Pelvis - IV Contrast Only; Complete Time: 18:48 jl7 03/20 15:50 Order name: EKG; Complete Time: 15:51 kb 03/20 15:50 Order name: Accucheck; Complete Time: 16:34 kb 03/20 15:50 Order name: Cardiac monitoring; Complete Time: 16:28 kb 03/20 15:50 Order name: EKG - Nurse/Tech; Complete Time: 16:28 kb 03/20 15:50 Order name: IV Saline Lock - Large Bore; Complete Time: 16:58 kb 03/20 15:50 Order name: Labs collected and sent; Complete Time: 16:58 kb 03/20 15:50 Order name: O2 Per Protocol; Complete Time: 16:28 kb 03/20 15:50 Order name: O2 Sat Monitoring; Complete Time: 16:28 kb 03/20 15:50 Order name: Vital Signs; Complete Time: 16:28 kb EC:21 Rate is 78 beats/min. Rhythm is regular. QRS [place] is Normal. VT interval is normal at kb 156 msec. QRS interval is normal at 88 msec. QT interval is normal at 408 msec. Administered Medications: 18:53 CANCELLED (Duplicate Order): Potassium Chloride PO 40 mEq PO once kb 19:05 Drug: Potassium Chloride PO 20 mEq Route: PO; jl7 19:05 Follow up: Response: Medication administered at discharge. jl7 Disposition: 03/21 12:04 Co-signature as Attending Physician, Terrence Yancey MD I reviewed the patient's care rt provided by the Advanced Practice Provider and agree with the diagnosis and treatment plan. Disposition Summary: 03/20/23 18:53 Discharge Ordered Location: Home kb Condition: Stable kb Diagnosis - Urinary frequency kb Followup: kb - With: Emergency Department - When: As needed - Reason: Worsening of condition Followup: kb - With: Private Physician - When: 2 - 3 days - Reason: Recheck today's complaints, Continuance of care, Re-evaluation by your physician Discharge Instructions: - Discharge Summary Sheet kb - Potassium Content of Foods kb - Urinary Frequency, Adult kb - Hypokalemia kb Forms: - Medication Reconciliation Form kb - Thank You Letter kb - Antibiotic Education kb - Prescription Opioid Use kb - [email or web address] kb Signatures: Dispatcher [employer] EDMS Kim Taveras FNP-C FNP-Annette Chiang RN RN jl7 Naa Dukes RN RN mb9 Terrence Yancey MD MD rt Corrections: (The following items were deleted from the chart) 03/20 18:53 18:48 Potassium Chloride PO 40 mEq PO once ordered. kb kb
--- NOTE | 2023-03-20 18:54 | ER ---
Nurse's Notes [facility] Name: Theresa Mcguire Age: 42 yrs Sex: Female : 1980 Arrival Date: 03/20/2023 Time: 15:42 Bed 8 Private MD: Diagnosis: Urinary frequency Presentation: 03/20 16:07 Chief complaint: Patient states: "I self diagnosed myself with a UTI 3 weeks ago and mb9 have been using old antibiotics I had at home. Its gotten worse over the past few days and now I have bilateral upper back pain.". Coronavirus screen: Vaccine status: Patient reports being unvaccinated. Ebola Screen: No symptoms or risks identified at this time. Initial Sepsis Screen: Does the patient meet any 2 criteria? HR > 90 bpm. Does the patient have a suspected source of infection? No. Patient's initial sepsis screen is negative. Risk Assessment: Do you want to hurt yourself or someone else? Patient reports no desire to harm self or others. Onset of symptoms was 2022. 16:07 Method Of Arrival: Ambulatory mb9 16:07 Acuity: MYKEL 3 mb9 Triage Assessment: 16:10 General: Appears in no apparent distress. Behavior is cooperative. Pain: Complains of mb9 pain in back. Neuro: Dale Agitation-Sedation Scale (RASS): 0 - Alert and Calm. Respiratory: Airway is patent. : Reports urgency. Derm: Skin is pink, warm \\T\\ dry. Historical: - Allergies: 16:09 Levaquin; mb9 16:09 QUINOLONES; mb9 16:09 Toradol; mb9 16:09 tramadol; mb9 - Home Meds: 16:09 Alprazolam Oral [Active]; mb9 - PMHx: 16:09 Anxiety; mb9 - Immunization history:: Adult Immunizations up to date. - Social history:: Smoking status: Patient reports the use of cigarette tobacco products, smokes one pack cigarettes per day. Screenin:58 [facility] ED Fall Risk Assessment (Adult) History of falling in the last 3 months, jl7 including since admission No falls in past 3 months (0 pts) Confusion or Disorientation No (0 pts) Intoxicated or Sedated No (0 pts) Impaired Gait No (0 pts) Mobility Assist Device Used No (0 pt) Altered Elimination No (0 pt) Score/Fall Risk Level 0 - 2 = Low Risk Oriented to surroundings, Maintained a safe environment. Abuse screen: Denies threats or abuse. Denies injuries from another. Nutritional screening: No deficits noted. Tuberculosis screening: No symptoms or risk factors identified. Assessment: 17:00 Reassessment: Patient appears in no apparent distress at this time. No changes from [facility] previously documented assessment. Patient and/or family updated on plan of care and expected duration. Pain level reassessed. Patient is alert, oriented x 3, equal unlabored respirations, skin warm/dry/pink. 18:00 Reassessment: Patient appears in no apparent distress at this time. No changes from [facility] previously documented assessment. Patient and/or family updated on plan of care and expected duration. Pain level reassessed. Patient is alert, oriented x 3, equal unlabored respirations, skin warm/dry/pink. Vital Signs: 16:07 BP 156 / 86; Pulse 98; Resp 18; Temp 98.7(O); Pulse Ox 100% on R/A; Weight 68.04 kg; [facility] Height 5 ft. 7 in. ; 16:58 BP 136 / 85; Pulse 76; Resp 15; Pulse Ox 97% ; jl7 18:00 BP 135 / 84; Pulse 75; Resp 15; Pulse Ox 100% ; 7 16:07 Body Mass Index 23.49 (68.04 kg, 170.18 cm) [facility] ED Course: 15:44 Patient arrived in ED. mr 15:45 Nitin Kim, SVEN is [facility]. kb 15:45 Terrence Yancey MD is Attending Physician. kb 16:01 Annette Lomeli, MARK is Primary Nurse. [facility] 16:07 Arm band placed on. 9 16:08 Triage completed. 9 16:18 First set of blood cultures drawn by me. Inserted saline lock: 22 gauge in left jl7 antecubital area, using aseptic technique. Blood collected. 16:20 Patient has correct armband on for positive identification. Bed in low position. Call [facility] light in reach. Side rails up X2. Client placed on continuous cardiac and pulse oximetry monitoring. NIBP monitoring applied. Warm blanket given. 16:20 Missed attempt(s): 20 gauge in right forearm. Bleeding controlled, band aid applied, jl7 catheter tip intact. 16:48 Initial lab(s) drawn, by me, sent to lab. Second set of blood cultures drawn by , kim Urine collected: clean catch specimen, clear, EKG done, by ED staff, reviewed by Kim MACHUCA. 17:03 Chest Single View XRAY In Process Unspecified. EDMS 18:40 CT Abd/Pelvis - IV Contrast Only In Process Unspecified. EDMS 19:11 No provider procedures requiring assistance completed. Patient did not have IV access jl7 during this emergency room visit. intact, bleeding controlled, No redness/swelling at site. Pressure dressing applied. Administered Medications: 18:53 CANCELLED (Duplicate Order): Potassium Chloride PO 40 mEq PO once kb 19:05 Drug: Potassium Chloride PO 20 mEq Route: PO; jl7 19:05 Follow up: Response: Medication administered at discharge. jl7 Medication: 16:58 VIS not applicable for this client. jl7 Outcome: 18:53 Discharge ordered by . kb 19:11 Discharged to home ambulatory. jl7 19:11 Condition: stable 19:11 Discharge instructions given to patient, Instructed on discharge instructions, follow up and referral plans. Demonstrated understanding of instructions, follow-up care. 19:11 Patient left the ED. jl7 Signatures: Dispatcher [employer] EDND Kim Taveras, SVEN LYNN-Naa Armando Jahala RN RN jl7 Naa Dukes, RN RN mb9
[2023-03-20] MEDS ORDERED: POTASSIUM CL SA 10 MEQ TAB PO ONE (19:07)
[2023-03-20 19:46] VITALS: TEMP 98.7
[2023-03-20 19:48] VITALS: BP 135/84; O2SAT 100
--- NOTE | 2023-03-22 12:34 | EKG ---
Test Date: 2023-03-20 Test Time: 16:13:57 [employer] Fisher[employer]: CAROLYN MEASUREMENT RESULTS: Intervals: Rate: 78 IN: 156 QRSD: 88 QT: 358 QTc: 408 [place]: P: 71 IN: 156 QRS: 79 T: 55 INTERPRETIVE STATEMENTS: Normal sinus rhythm Normal ECG No previous ECG available for comparison Electronically Signed On 03-22-23 12:33:05 CDT by Tyler Romano
== END 2023-03-20 19:11 | disposition home or self-care (01) ==
LOC: ER 15:42
DX: R35.0 Frequency of micturition (principal)
CPT/HCPCS: 36415; 71045; 74177; 80053; 81001; 82947; 83605; 85025; 85610; 85730; 87040; 93005; 99284; Q9967